=== PATIENT | female | born 1935 | race Caucasian/White ===

== ENCOUNTER 2019-09-21 13:05 | Outpatient (CLI) | payer MEDICARE, SELFPAY ==
[2019-09-21 13:41] LABS: Basophils % 0.6 %; Eosinophils # 0.1 10^3/uL (0.0-0.8); Eosinophils % 1.9 %; Hematocrit 42.8 % (37.0-47.0); Hemoglobin 13.5 g/dL (11.5-15.3); Lymphocytes # 1.2 10^3/uL (0.8-4.8); Lymphocytes % 24.7 %; Mean Corpuscular HGB Conc 31.5 g/dL (30.0-36.0); Mean Corpuscular Hemoglobin 29.6 pg (28.0-34.0); Mean Corpuscular Volume 93.9 fL (81-99); Mean Platelet Volume 10.9 fL (7.4-10.4); Monocytes # 0.3 10^3/uL (0.2-0.9); Monocytes % 6.5 %; Neutrophils # 3.2 10^3/uL (1.8-7.7); Neutrophils % 66.1 %; Nucleated Red Blood Cells % 0 %; Platelet Count 155 10^3/cmm (130-400); Red Blood Count 4.56 10^6/uL (4.1-5.3); Red Cell Distribution Width 12.5 % (12.1-15.1); White Blood Count 4.8 10^3/uL (4.0-10.0)
[2019-09-21 14:24] LABS: Carcinoembryonic Antigen 1.3 ng/mL (0.0-4.7)
[2019-09-21 14:36] LABS: Alanine Aminotransferase 10 U/L (0-33); Albumin Level 4.2 g/dL (3.5-5.2); Alkaline Phosphatase 76 IU/L (35-105); Anion Gap 16.5 (5-19); Aspartate Amino Transferase 20 U/L (0-32); Blood Urea Nitrogen 17 mg/dL (8-23); Calcium 9.5 mg/dL (8.5-10.5); Carbon Dioxide 29 mmol/L (22-29); Chloride 101 mmol/L (98-107); Globulin 2.8 g/dL (1.3-4.6); Glucose 135 mg/dL (65-115); Osmolality Calculated 294 mOsm/kg (285-295); Potassium 3.5 mmol/L (3.5-5.1); Sodium 143 mmol/L (136-145); Total Bilirubin 0.5 mg/dL (0.15-1.2)
--- NOTE | 2019-09-21 15:10 | ONC FU_ITS ---
Dr. Mendieta follow up note Patient: Naye Carter Unit #: [id number]: 1935 Dicatated By: Antoni Mendieta M.D.Date of Visit:Sep 21, 2019 Onc Med Follow-up/Prog Note History of Present Illness: Mrs. Naye Carter, 83-year-old woman with history of rectal bleed in January 2017 and underwent colonoscopy by Dr. Mike lamas which showed tumor/mass located in the rectosigmoid area at 18 cm biopsies was obtained which showed invasive moderately differentiated adenocarcinoma CT scan of the abdomen done in February 2017 showed short segment fusiform wall thickening of the sigmoid colon subcentimeter hepatic hypodensities too small to accurately characterize by CT Underwent low anterior resection with end to end stapled anastomosis and laparoscopic complete mobilization of splenic flexure on 02/12/2017 and final pathology report showed moderately differentiated adenocarcinoma invading through the muscularis propria into the pericolic soft tissue. Metastatic adenocarcinoma in one of the 17 lymph nodes surgical margins clear no lymphovascular invasion seen and histology was low-grade. IHC testing for mismatch repair protein showed no loss of expression of MMR proteins ; low probability of microsatellite instability-high Status post adjuvant chemotherapy with modified dose/schedule FOLFOX ???6 from 05/06/2017 till 07/14/2017. Follow-up CT scan of abdomen pelvis done on 07/14/2018 showed no evidence of disease progression and abdomen pelvis Stable appearing right renal and left hepatic cysts Unremarkable postoperative changes of sigmoid resection with end to end anastomosis. f/u Colonoscopy done on 06/27/2018 showed no evidence of disease but internal hemorrhoids. Came for follow-up denies any specific complaints, no fever chills, no nausea or vomiting, no diarrhea or constipation, no abdominal pain, no weight loss, appetite is good, no jaundice Medications: Aspirin 1 (81 mg) Tablet Oral daily, HydroCHLOROthiazide 1 (25 mg) Tablet Oral daily, LORazepam 0.5 - 1 mg (of 1 mg) Tablet Oral t.i.d. PRN, MiraLax 1 Pack Oral daily, Oxybutynin Chloride 1 (5 mg) Tablet Oral daily, Prochlorperazine Maleate 1 (10 mg) Tablet Oral q 4 hours PRN, RaNITidine HCl Tablet Oral PRN, Verapamil HCl ER 1 (180 mg) Capsule SR 24 HR Oral daily, Vision Formula Eye Health 1 Capsule Oral daily Allergies: TEGretol and TraMADol HCl. Review of Systems: Constitutional - Energy level is good. Appetite is good and weight is stable. No fever, chills, hot flashes, or night sweats, ENMT - Some sinus congestion/drainage. No mouth sores. No sore throat or difficulty swallowing, Hematologic/Lymphatic - No abnormal bruising or bleeding, Respiratory - No shortness of breath. Nonproductive cough. No pleuritic pain or hemoptysis, Cardiovascular - No angina pain. No palpitations, Gastrointestinal - No nausea or vomiting. Occasional heartburn or acid reflux. No diarrhea or constipation. No blood in the stool or black stools, Genitourinary (F) - No dysuria or hematuria. Positive for urinary frequency. No urgency or incontinence, Musculoskeletal - Chronic joint/knee pain, Neurologic - No headache or dizziness. Occasinal numbness in hands, Psychiatric - No anxiety or depression. No insomnia. Vital Signs: Performed on Sep 21, 2019 14:44 Height - 62.00 in Weight - 180.2 lbs (LOW) BSA - 1.83 sq.m BMI - 32.96 (HIGH) Temperature - 98.0 F (LOW) Pulse - 95 /min Respiration - 18 /min BP - 126/77 mm(hg) O2 Sat - 94 % (LOW) Pain - 0 Performance Status: 0 - Fully active, able to carry on all predisease activities without restrictions. (ECOG) Physical Examination: ENMT - No mouth sores, no thrush, no jaundice, Respiratory - Lungs are clear, Cardiovascular - Regular rate and rhythm of heart, Abdomen - Soft, bowel sounds present, nontender, Extremities - No visible edema or rash. Lab/Imaging: Most recent lab results are not available for this patient. 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 on 02/12/2017 final pathology showed tumor size 4 cm low-grade tumor invaded through muscularis propria into pericolic soft tissue margins were clear no lymphovascular invasion seen no perineural invasion seen p T3, pN1 a , MX stage IIIa IHC testing for mismatch repair protein showed no loss of expression of MMR proteins CT PET scan done on 04/17/2017 showed no findings to suggest distant metastatic disease.started on adjuvant chemotherapy with FOLFOX on 05/05/2017 till 07/14/2017 considering her age and comorbid conditions planning was to give her 6 cycles in total Which she finished on 07/14/2017 History of malignancy , (pathology and a primary , unknown at this time) in the chest diagnosed 20 years ago status post resection followed by radiation therapy Follow-up CT scan of abdomen pelvis done on 07/14/2018 showed no evidence of disease recurrence Stable appearance right renal and left hepatic cysts. Unremarkable postop changes of sigmoid resection with end to end anastomosis Follow-up Colonoscopy done on 06/27/2018 showed unremarkable exam except internal hemorrhoids Plan: Discussed with patient regarding her labs white blood count 4.8 hemoglobin 13.5 hematocrit 42.8 platelets 155,000 CMP within normal limits CEA 1.3 Clinically, patient doing well with no signs symptom suggestive of recurrence of disease or follow-up lab including tumor marker within normal range, will continue to monitor and she will return to clinic in 6 months with CBC CMP and CEA Signed By: Antoni Mendieta M.D. <<Signature on File>>
== END 2019-09-21 13:06 | disposition home or self-care (01) ==
LOC: ONCMED 13:08
PROVIDERS: PCP Physician Assistant Medical; Visit Provider Internal Medicine Hematology & Oncology
DX: Z08 Encounter for follow-up examination after completed treatment for malignant neoplasm (principal); Z85.038 Personal history of other malignant neoplasm of large intestine; Z92.21 Personal history of antineoplastic chemotherapy; Z85.9 Personal history of malignant neoplasm, unspecified; K76.89 Other specified diseases of liver; N28.1 Cyst of kidney, acquired; K64.8 Other hemorrhoids; Z90.49 Acquired absence of other specified parts of digestive tract
CPT/HCPCS: 80053; 82378; 85025; G0463

== ENCOUNTER 2020-03-21 12:07 | Outpatient (CLI) | payer MEDICARE, SELFPAY ==
[2020-03-21 12:41] LABS: Basophils % 0.6 %; Eosinophils # 0.1 10^3/uL (0.0-0.8); Eosinophils % 1.3 %; Hematocrit 44.7 % (37.0-47.0); Hemoglobin 14.3 g/dL (11.5-15.3); Lymphocytes # 1.1 10^3/uL (0.8-4.8); Lymphocytes % 20.7 %; Mean Corpuscular Hemoglobin 29.9 pg (28.0-34.0); Mean Corpuscular Volume 93.5 fL (81-99); Mean Platelet Volume 10.6 fL (7.4-10.4); Monocytes # 0.3 10^3/uL (0.2-0.9); Monocytes % 6.1 %; Neutrophils # 3.74 10^3/uL (1.8-7.7); Neutrophils % 71.1 %; Nucleated Red Blood Cells % 0 %; Platelet Count 160 10^3/cmm (130-400); Red Blood Count 4.78 10^6/uL (4.1-5.3); Red Cell Distribution Width 12.2 % (12.1-15.1); White Blood Count 5.3 10^3/uL (4.0-10.0)
[2020-03-21 13:15] LABS: Carcinoembryonic Antigen 1.5 ng/mL (0.0-4.7)
[2020-03-21 13:26] LABS: Alanine Aminotransferase 11 U/L (0-33); Albumin Level 4.2 g/dL (3.5-5.2); Alkaline Phosphatase 84 IU/L (35-105); Anion Gap 13.7 (5-19); Aspartate Amino Transferase 20 U/L (0-32); Blood Urea Nitrogen 14 mg/dL (8-23); Calcium 9.7 mg/dL (8.5-10.5); Carbon Dioxide 29 mmol/L (22-29); Chloride 100 mmol/L (98-107); Globulin 2.7 g/dL (1.3-4.6); Glucose 94 mg/dL (65-115); Osmolality Calculated 288 mOsm/kg (285-295); Potassium 3.7 mmol/L (3.5-5.1); Sodium 139 mmol/L (136-145); Total Bilirubin 0.4 mg/dL (0.15-1.2); Total Protein 6.9 g/dL (6.6-8.7)
--- NOTE | 2020-03-21 15:24 | ONC FU_ITS ---
Dr. Mendieta follow up note Patient: Naye Carter Unit #: [id number]: 1935 Dicatated By: Antoni Mendieta M.D.Date of Visit:Mar 21, 2020 Onc Med Follow-up/Prog Note History of Present Illness: Mrs. Naye Carter, 84-year-old woman with history of rectal bleed in January 2017 and underwent colonoscopy by Dr. Mike lamas which showed tumor/mass located in the rectosigmoid area at 18 cm biopsies was obtained which showed invasive moderately differentiated adenocarcinoma CT scan of the abdomen done in February 2017 showed short segment fusiform wall thickening of the sigmoid colon subcentimeter hepatic hypodensities too small to accurately characterize by CT Underwent low anterior resection with end to end stapled anastomosis and laparoscopic complete mobilization of splenic flexure on 02/12/2017 and final pathology report showed moderately differentiated adenocarcinoma invading through the muscularis propria into the pericolic soft tissue. Metastatic adenocarcinoma in one of the 17 lymph nodes surgical margins clear no lymphovascular invasion seen and histology was low-grade. IHC testing for mismatch repair protein showed no loss of expression of MMR proteins ; low probability of microsatellite instability-high Status post adjuvant chemotherapy with modified dose/schedule FOLFOX ???6 from 05/06/2017 till 07/14/2017. Follow-up CT scan of abdomen pelvis done on 07/14/2018 showed no evidence of disease progression and abdomen pelvis Stable appearing right renal and left hepatic cysts Unremarkable postoperative changes of sigmoid resection with end to end anastomosis. f/u Colonoscopy done on 06/27/2018 showed no evidence of disease but internal hemorrhoids. Came for follow-up, denies any specific complaints, no fever chills, no nausea vomiting, no diarrhea or constipation, no melena or hematochezia, no abdominal pain, as per patient about 2 months ago she did develop abdominal pain for which she went to [facility] in [place] where she underwent CT scan of abdomen and she was told she may have obstruction but later on she was told everything was all right. Medications: Aspirin 1 (81 mg) Tablet Oral daily, HydroCHLOROthiazide 1 (25 mg) Tablet Oral daily, LORazepam 0.5 - 1 mg (of 1 mg) Tablet Oral t.i.d. PRN, MiraLax 1 Pack Oral daily, Oxybutynin Chloride 1 (5 mg) Tablet Oral daily, Prochlorperazine Maleate 1 (10 mg) Tablet Oral q 4 hours PRN, RaNITidine HCl Tablet Oral PRN, Verapamil HCl ER 1 (180 mg) Capsule SR 24 HR Oral daily, Vision Formula Eye Health 1 Capsule Oral daily Allergies: TEGretol and TraMADol HCl. Review of Systems: Constitutional - Energy level is good. Appetite is good and weight is stable. No fever, chills, hot flashes, or night sweats, ENMT - Some sinus congestion/drainage. No mouth sores. No sore throat or difficulty swallowing, Hematologic/Lymphatic - No abnormal bruising or bleeding, Respiratory - No shortness of breath. Nonproductive cough. No pleuritic pain or hemoptysis, Cardiovascular - No angina pain. No palpitations, Gastrointestinal - No nausea or vomiting. Occasional heartburn or acid reflux. No diarrhea or constipation. No blood in the stool or black stools, Genitourinary (F) - No dysuria or hematuria. Positive for urinary frequency. No urgency or incontinence, Musculoskeletal - Chronic joint/knee pain, Integumentary - , Neurologic - No headache or dizziness. Occasinal numbness in hands, Psychiatric - No anxiety or depression. No insomnia. Vital Signs: Performed on Mar 21, 2020 13:54 Height - 62.00 in Weight - 174.0 lbs (LOW) BSA - 1.80 sq.m BMI - 31.83 (HIGH) Temperature - 98.1 F (LOW) Pulse - 99 /min Respiration - 18 /min BP - 136/79 mm(hg) O2 Sat - 96 % Pain - 0 Performance Status: 0 - Fully active, able to carry on all predisease activities without restrictions. (ECOG) Physical Examination: ENMT - No mouth sores, no thrush, no jaundice, Respiratory - Lungs are clear to auscultation, Cardiovascular - Regular rate and rhythm of heart, Abdomen - Soft, bowel sounds present, Extremities - No visible edema or rash. Lab/Imaging: Most recent lab results are not available for this patient. 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 on 02/12/2017 final pathology showed tumor size 4 cm low-grade tumor invaded through muscularis propria into pericolic soft tissue margins were clear no lymphovascular invasion seen no perineural invasion seen p T3, pN1 a , MX stage IIIa IHC testing for mismatch repair protein showed no loss of expression of MMR proteins CT PET scan done on 04/17/2017 showed no findings to suggest distant metastatic disease.started on adjuvant chemotherapy with FOLFOX on 05/05/2017 till 07/14/2017 considering her age and comorbid conditions planning was to give her 6 cycles in total Which she finished on 07/14/2017 History of malignancy , (pathology and a primary , unknown at this time) in the chest diagnosed 20 years ago status post resection followed by radiation therapy Follow-up CT scan of abdomen pelvis done on 07/14/2018 showed no evidence of disease recurrence Stable appearance right renal and left hepatic cysts. Unremarkable postop changes of sigmoid resection with end to end anastomosis Follow-up Colonoscopy done on 06/27/2018 showed unremarkable exam except internal hemorrhoids Plan: Discussed with patient regarding her labs white blood count 5.3 hemoglobin 14.3 hematocrit 44.7 platelets 160,000 CMP within normal limits CEA 1.5 Clinically, patient doing well with no new signs symptom suggestive of recurrence of disease, lab work-up is within normal range including tumor marker. Patient said about 2 months ago she went to [facility] in [facility] with abdominal pain and where CT scan of abdomen was done which showed possible intestinal obstruction, as per patient later on she was told everything was all right. And since then she has no more abdominal pain or symptom. We will obtain CT scan of abdomen report from [place] and review. Return to clinic in 6 months with CBC CMP Signed By: Antoni Mendieta M.D. <<Signature on File>>
== END 2020-03-21 12:08 | disposition home or self-care (01) ==
LOC: ONCMED 12:09
PROVIDERS: PCP Physician Assistant Medical; Visit Provider Internal Medicine Hematology & Oncology
DX: Z08 Encounter for follow-up examination after completed treatment for malignant neoplasm (principal); Z85.038 Personal history of other malignant neoplasm of large intestine; N28.1 Cyst of kidney, acquired; K76.0 Fatty (change of) liver, not elsewhere classified; K63.89 Other specified diseases of intestine; K64.8 Other hemorrhoids; Z79.899 Other long term (current) drug therapy
CPT/HCPCS: 36415; 80053; 82378; 85025; G0463

== ENCOUNTER 2020-08-20 13:05 | Outpatient (CLI) | payer MEDICARE, SELFPAY ==
--- NOTE | 2020-08-20 15:17 | MR_ITS ---
WS: [id number] MRI LEFT KNEE HISTORY: CHRONIC LEFT KNEE PAIN COMPARISON: None available. Anterior cruciate ligament: Complete tear of the distal ACL. Loss of the normal fibers distally. Posterior cruciate ligament: Mild buckling of the PCL. Medial collateral ligament: MCL is being displaced from the joint line by extruded meniscus and osteo phytes. Small amount of fluid adjacent to the MCL but no tear. Posterior lateral corner structures: Intact. Medial menisci: Abnormal signal and shape within the anterior and posterior horns. Menisci are extrud ed from the joint and there are complex tears bilaterally. Lateral meniscus: Intrasubstance degeneration. No definite tear is identified. Extensor mechanism: Distal quadriceps tendon and patellar tendons are intact. Fluid and soft tissue: Moderate-sized suprapatellar joint effusion. There is mild soft tissue edema s urrounding the knee. No Rosen's cyst. Osseous and articular structures: Patellofemoral compartment: Moderate narrowing patellofemoral joint space with patellar osteophytes. Moderate chondromalacia lateral patellar facet. No marrow edema. Medial compartment: Severe narrowing medial compartment. There is edema within the medial tibial plat eau. Moderate-sized osteophytes from the joint line with complete loss of cartilage. Spurring involvi ng the tibial spines. Lateral compartment: Mild narrowing of the lateral compartment. Marrow edema involving the lateral ti bial plateau. Osteophytes from the joint line. Significant chondromalacia but slightly better preserv ed cartilage in the lateral compartment as compared to the medial. MR/MR knee LT wo con* [id number] IMPRESSION: 1. Torn ACL. 2. Severe internal derangement medial compartment with loss of cartilage, david ow edema and extruded menisci. 3. Moderate internal derangement lateral compartment loss of cartilage and ost eophytes from the joint line. Marrow edema and intrasubstance degeneration in t he menisci. 4. Displacement of the MCL by extruded menisci and osteophytes. 5. Moderate-sized joint effusion. 6. Moderate chondromalacia lateral patellar facet.
== END 2020-08-20 13:06 | disposition home or self-care (01) ==
PROVIDERS: PCP Physician Assistant Medical; Visit Provider Physician Assistant Medical
DX: M25.562 Pain in left knee (principal); M23.92 Unspecified internal derangement of left knee; S83.502A Sprain of unspecified cruciate ligament of left knee, initial encounter; X58.XXXA Exposure to other specified factors, initial encounter; M25.462 Effusion, left knee; M22.42 Chondromalacia patellae, left knee
CPT/HCPCS: 73721

== ENCOUNTER → 2020-09-18 10:34 | Outpatient (BNVA) | payer MEDICARE, SELFPAY | PROVIDERS: PCP Physician Assistant Medical; Referring Provider Physician Assistant Medical; Visit Provider Specialist | DX: M25.562 Pain in left knee (principal); M17.12 Unilateral primary osteoarthritis, left knee; M25.462 Effusion, left knee | CPT/HCPCS: 73560; 73565 ==

== ENCOUNTER 2020-09-20 08:07 | Outpatient (CLI) | payer MEDICARE, SELFPAY ==
[2020-09-20 08:28] LABS: Basophils % 0.6 %; Eosinophils # 0.1 10^3/uL (0.0-0.8); Eosinophils % 1.8 %; Hematocrit 44.7 % (37.0-47.0); Hemoglobin 14.2 g/dL (11.5-15.3); Lymphocytes # 1.1 10^3/uL (0.8-4.8); Lymphocytes % 23.1 %; Mean Corpuscular HGB Conc 31.8 g/dL (30.0-36.0); Mean Corpuscular Hemoglobin 29.8 pg (28.0-34.0); Mean Corpuscular Volume 93.9 fL (81-99); Mean Platelet Volume 10.2 fL (7.4-10.4); Monocytes # 0.4 10^3/uL (0.2-0.9); Monocytes % 8.3 %; Neutrophils # 3.26 10^3/uL (1.8-7.7); Nucleated Red Blood Cells % 0 %; Platelet Count 157 10^3/cmm (130-400); Red Blood Count 4.76 10^6/uL (4.1-5.3); Red Cell Distribution Width 12.3 % (12.1-15.1); White Blood Count 4.9 10^3/uL (4.0-10.0)
[2020-09-20 08:58] LABS: Alanine Aminotransferase 9 U/L (0-33); Albumin Level 4.2 g/dL (3.5-5.2); Alkaline Phosphatase 78 IU/L (35-105); Anion Gap 10.6 (5-19); Aspartate Amino Transferase 16 U/L (0-32); Blood Urea Nitrogen 22 mg/dL (8-23); Calcium 9.2 mg/dL (8.5-10.5); Carbon Dioxide 34 mmol/L (22-29); Chloride 102 mmol/L (98-107); Globulin 2.4 g/dL (1.3-4.6); Glucose 96 mg/dL (65-115); Osmolality Calculated 299 mOsm/kg (285-295); Potassium 3.6 mmol/L (3.5-5.1); Sodium 143 mmol/L (136-145); Total Bilirubin 0.4 mg/dL (0.15-1.2); Total Protein 6.6 g/dL (6.6-8.7)
--- NOTE | 2020-09-20 11:58 | ONC FU_ITS ---
Dr. Mendieta follow up note Patient: Naye Carter Unit #: [id number]: 1935 Dicatated By: Antoni Mendieta M.D.Date of Visit:Sep 20, 2020 Onc Med Follow-up/Prog Note History of Present Illness: Mrs. Naye Carter, 84-year-old woman with history of rectal bleed in January 2017 and underwent colonoscopy by Dr. Mike lamas which showed tumor/mass located in the rectosigmoid area at 18 cm biopsies was obtained which showed invasive moderately differentiated adenocarcinoma CT scan of the abdomen done in February 2017 showed short segment fusiform wall thickening of the sigmoid colon subcentimeter hepatic hypodensities too small to accurately characterize by CT Underwent low anterior resection with end to end stapled anastomosis and laparoscopic complete mobilization of splenic flexure on 02/12/2017 and final pathology report showed moderately differentiated adenocarcinoma invading through the muscularis propria into the pericolic soft tissue. Metastatic adenocarcinoma in one of the 17 lymph nodes surgical margins clear no lymphovascular invasion seen and histology was low-grade. IHC testing for mismatch repair protein showed no loss of expression of MMR proteins ; low probability of microsatellite instability-high Status post adjuvant chemotherapy with modified dose/schedule FOLFOX ???6 from 05/06/2017 till 07/14/2017. Follow-up CT scan of abdomen pelvis done on 07/14/2018 showed no evidence of disease progression and abdomen pelvis Stable appearing right renal and left hepatic cysts Unremarkable postoperative changes of sigmoid resection with end to end anastomosis. f/u Colonoscopy done on 06/27/2018 showed no evidence of disease but internal hemorrhoids. Came for follow-up, denies any specific complaint except left knee pain and discomfort as per patient left knee replacement is under consideration other than that no fever chills, no nausea or vomiting no diarrhea constipation, no jaundice, no abdominal pain, no melena hematochezia Medications: Aspirin 1 (81 mg) Tablet Oral daily, HydroCHLOROthiazide 1 (25 mg) Tablet Oral daily, LORazepam 0.5 - 1 mg (of 1 mg) Tablet Oral t.i.d. PRN, MiraLax 1 Pack Oral daily, Oxybutynin Chloride 1 (5 mg) Tablet Oral daily, Prochlorperazine Maleate 1 (10 mg) Tablet Oral q 4 hours PRN, RaNITidine HCl Tablet Oral PRN, Verapamil HCl ER 1 (180 mg) Capsule SR 24 HR Oral daily, Vision Formula Eye Health 1 Capsule Oral daily Allergies: TEGretol and TraMADol HCl. Review of Systems: Review of Systems is not available for this patient. Vital Signs: Performed on Sep 20, 2020 10:09 Height - 62.00 in Weight - 174.6 lbs (HIGH) BSA - 1.80 sq.m BMI - 31.93 (HIGH) Temperature - 97.6 F (LOW) Pulse - 91 /min Respiration - 18 /min BP - 118/75 mm(hg) O2 Sat - 92 % (LOW) Pain - 0 Fatigue - 0 Performance Status: 0 - Fully active, able to carry on all predisease activities without restrictions. (ECOG) Physical Examination: ENMT - No mouth sores, no thrush, no jaundice, Respiratory - Lungs are clear to auscultation, Cardiovascular - Regular rate and rhythm of heart, Abdomen - Soft, bowel sounds present, Extremities - No visible edema. Lab/Imaging: Most recent lab results are not available for this patient. 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 on 02/12/2017 final pathology showed tumor size 4 cm low-grade tumor invaded through muscularis propria into pericolic soft tissue margins were clear no lymphovascular invasion seen no perineural invasion seen p T3, pN1 a , MX stage IIIa IHC testing for mismatch repair protein showed no loss of expression of MMR proteins CT PET scan done on 04/17/2017 showed no findings to suggest distant metastatic disease.started on adjuvant chemotherapy with FOLFOX on 05/05/2017 till 07/14/2017 considering her age and comorbid conditions planning was to give her 6 cycles in total Which she finished on 07/14/2017 History of malignancy , (pathology and a primary , unknown at this time) in the chest diagnosed 20 years ago status post resection followed by radiation therapy Follow-up CT scan of abdomen pelvis done on 07/14/2018 showed no evidence of disease recurrence Stable appearance right renal and left hepatic cysts. Unremarkable postop changes of sigmoid resection with end to end anastomosis Follow-up Colonoscopy done on 06/27/2018 showed unremarkable exam except internal hemorrhoids Plan: Discussed with patient regarding her labs white blood count 4.9 hemoglobin 14.2 hematocrit 44.7 platelets 157 CMP within normal limits Clinically, patient doing well with no new signs symptom suggestive of recurrence of disease, patient had a CT scan of abdomen pelvis done in December 2019 at that time she presented to [facility] in [place] with the abdominal pain and diagnosed with ileus appearing proximal small bowel with a much retained stools and there were few indeterminate tiny hepatic hypodensities too small to fully characterize, Patient has no new symptoms suggestive of recurrence of disease but at this point, will consider follow-up CT scan of abdomen pelvis prior to next visit in 4 months with CBC CMP and CEA Signed By: Antoni Mendieta M.D. <<Signature on File>>
== END 2020-09-20 08:08 | disposition home or self-care (01) ==
PROVIDERS: PCP Physician Assistant Medical; Visit Provider Internal Medicine Hematology & Oncology
DX: Z08 Encounter for follow-up examination after completed treatment for malignant neoplasm (principal); Z85.038 Personal history of other malignant neoplasm of large intestine; N28.1 Cyst of kidney, acquired; K76.0 Fatty (change of) liver, not elsewhere classified; K64.9 Unspecified hemorrhoids; Z79.899 Other long term (current) drug therapy; Z92.21 Personal history of antineoplastic chemotherapy
CPT/HCPCS: 36415; 80053; 85025; 99214

== ENCOUNTER 2020-09-26 06:00 | Outpatient (RCR) | payer MEDICARE, SELFPAY | END 2020-10-02 23:59 | disposition home or self-care (01) | LOC: WPT 06:00 | PROVIDERS: PCP Physician Assistant Medical; Referring Provider Specialist; Visit Provider Specialist | DX: M17.12 Unilateral primary osteoarthritis, left knee (principal) | CPT/HCPCS: 97161 ==

== ENCOUNTER 2021-01-27 12:41 | Outpatient (CLI) | payer MEDICARE, SELFPAY ==
--- NOTE | 2021-01-27 | CT_ITS ---
WS: [id number] CT ABDOMEN PELVIS TECHNIQUE: Contrast-enhanced CT of the abdomen and pelvis with coronal and sagittal reformatted image s. CLINICAL INFORMATION: COLON CANCER COMPARISON: July 14, 2018 DLP: 1007.[address] [facility] use at least one of these dose optimization techniques: automated e xposure control; mA and/or kV adjustment per patient size (includes targeted exams where dose is matc hed to clinical indication); or iterative reconstruction. FINDINGS: Prior postoperative changes sigmoid resection with end to end anastomosis. No evidence of disease pro gression. No adenopathy in the abdomen or pelvis. Mild diffuse fatty infiltration of the liver. A few tiny incidental hepatic cysts. Splenic granulomas . Normal GE junction. Coronary calcification. Lung bases are well aerated. Fatty atrophy of the pancr eas. Adrenal glands are normal. Normal renal parenchymal enhancement. Incidental renal cysts. Normal caliber abdominal aorta. Aortic calcification. No evidence of high-grade small or large bowel obstruction. Small fat-containing abdominal hernia. Di sc space narrowing lower lumbar spine. CT/CT abdomen pelvis w con* [id number] IMPRESSION: 1. Prior postoperative changes sigmoid resection with end-to-end anastomosis. 2. No evidence of disease progression in the abdomen or pelvis. 3. No abdominal or pelvic lymphadenopathy. 4. Incidental right renal and tiny hepatic cysts. 5. Small Fat-containing supraumbilical hernia.
[2021-01-27] MEDS: iohexol 300 mg/mL 100 mL Btl IV (14:26)
[2021-01-27 14:44] LABS: Blood Urea Nitrogen 28 mg/dL (8-23)
== END 2021-01-27 12:42 | disposition home or self-care (01) ==
PROVIDERS: PCP Physician Assistant Medical; Visit Provider Internal Medicine Hematology & Oncology
DX: C18.7 Malignant neoplasm of sigmoid colon (principal); K42.9 Umbilical hernia without obstruction or gangrene; N28.1 Cyst of kidney, acquired; K76.89 Other specified diseases of liver
CPT/HCPCS: 74177; 82565; 84520; Q9967

== ENCOUNTER 2021-02-24 12:48 | Outpatient (CLI) | payer MEDICARE, SELFPAY ==
[2021-02-24 13:31] LABS: Basophils % 0.8 %; Eosinophils # 0.2 10^3/uL (0.0-0.8); Eosinophils % 4.1 %; Hematocrit 43.6 % (37.0-47.0); Hemoglobin 14.2 g/dL (11.5-15.3); Lymphocytes # 1.1 10^3/uL (0.8-4.8); Lymphocytes % 22.1 %; Mean Corpuscular HGB Conc 32.6 g/dL (30.0-36.0); Mean Corpuscular Hemoglobin 29.7 pg (28.0-34.0); Mean Corpuscular Volume 91.2 fl (81-99); Mean Platelet Volume 10.3 fL (7.4-10.4); Monocytes # 0.3 10^3/uL (0.2-0.9); Monocytes % 6.5 %; Neutrophils # 3.24 10^3/uL (1.8-7.7); Neutrophils % 66.3 %; Nucleated Red Blood Cells % 0 %; Platelet Count 160 10^3/cmm (130-400); Red Blood Count 4.78 10^6/uL (4.1-5.3); Red Cell Distribution Width 12.5 % (12.1-15.1); White Blood Count 4.9 10^3/uL (4.0-10.0)
[2021-02-24 14:35] LABS: Carcinoembryonic Antigen 1.7 ng/mL (0.0-4.7)
[2021-02-24 14:48] LABS: Alanine Aminotransferase 9 U/L (0-33); Alkaline Phosphatase 74 IU/L (35-105); Blood Urea Nitrogen 20 mg/dL (8-23); Calcium 8.7 mg/dL (8.5-10.5); Carbon Dioxide 31 mmol/L (22-29); Chloride 103 mmol/L (98-107); Globulin 2.4 g/dL (1.3-4.6); Glucose 111 mg/dL (65-115); Osmolality Calculated 301 mOsm/kg (285-295); Sodium 144 mmol/L (136-145); Total Bilirubin 0.3 mg/dL (0.15-1.2); Total Protein 6.4 g/dL (6.6-8.7)
[2021-02-24 14:49] LABS: Anion Gap 13.9 (5-19); Aspartate Amino Transferase 13 U/L (0-32); Potassium 3.9 mmol/L (3.5-5.1)
--- NOTE | 2021-02-26 09:27 | ONC FU_ITS ---
Dr. Mendieta follow up note Patient: Naye Carter Unit #: [id number]: 1935 Dicatated By: Antoni Mendieta M.D.Date of Visit:Feb 24, 2021 Onc Med Follow-up/Prog Note History of Present Illness: Mrs. Naye Carter, 85-year-old woman with history of rectal bleed in January 2017 and underwent colonoscopy by Dr. Mike lamas which showed tumor/mass located in the rectosigmoid area at 18 cm biopsies was obtained which showed invasive moderately differentiated adenocarcinoma CT scan of the abdomen done in February 2017 showed short segment fusiform wall thickening of the sigmoid colon subcentimeter hepatic hypodensities too small to accurately characterize by CT Underwent low anterior resection with end to end stapled anastomosis and laparoscopic complete mobilization of splenic flexure on 02/12/2017 and final pathology report showed moderately differentiated adenocarcinoma invading through the muscularis propria into the pericolic soft tissue. Metastatic adenocarcinoma in one of the 17 lymph nodes surgical margins clear no lymphovascular invasion seen and histology was low-grade. IHC testing for mismatch repair protein showed no loss of expression of MMR proteins ; low probability of microsatellite instability-high Status post adjuvant chemotherapy with modified dose/schedule FOLFOX ???6 from 05/06/2017 till 07/14/2017. Follow-up CT scan of abdomen pelvis done on 07/14/2018 showed no evidence of disease progression and abdomen pelvis Stable appearing right renal and left hepatic cysts Unremarkable postoperative changes of sigmoid resection with end to end anastomosis. f/u Colonoscopy done on 06/27/2018 showed no evidence of disease but internal hemorrhoids. Follow-up CT scan of abdomen pelvis done on January 23, 2021 shows no evidence of disease progression in the abdomen or pelvis. Prior postop changes sigmoid resection with end-to-end anastomosis. No abdominal or pelvic lymphadenopathy. Small fat-containing supra umbilical hernia., CEA 1.7 Came for follow-up, denies any specific complaints, no fever chills, no nausea or vomiting, no diarrhea or constipation, no melena or hematochezia, no jaundice, no abdominal pain, appetite is good, patient is considering knee replacement for chronic knee pain Medications: Aspirin 1 (81 mg) Tablet Oral daily, HydroCHLOROthiazide 1 (25 mg) Tablet Oral daily, LORazepam 0.5 - 1 mg (of 1 mg) Tablet Oral t.i.d. PRN, MiraLax 1 Pack Oral daily, Oxybutynin Chloride 1 (5 mg) Tablet Oral daily, Prochlorperazine Maleate 1 (10 mg) Tablet Oral q 4 hours PRN, RaNITidine HCl Tablet Oral PRN, Verapamil HCl ER 1 (180 mg) Capsule SR 24 HR Oral daily, Vision Formula Eye Health 1 Capsule Oral daily Allergies: TEGretol and TraMADol HCl. Review of Systems: Review of Systems is not available for this patient. Vital Signs: Performed on Feb 24, 2021 16:11 Height - 62.00 in Weight - 179 lbs (HIGH) BSA - 1.82 sq.m BMI - 32.74 (HIGH) Temperature - 97.4 F (LOW) Pulse - 104 /min (HIGH) Respiration - 18 /min BP - 137/83 mm(hg) O2 Sat - 94 % (LOW) Pain - 10 Fatigue - 0 Performance Status: 1 - No physically strenuous activity, but ambulatory and able to carry out light or sedentary work (e.g. office work, light house work). (ECOG) Physical Examination: ENMT - No mouth sores, no thrush, no jaundice, Respiratory - Lungs are clear to auscultation, Cardiovascular - Regular rate and rhythm of heart, Abdomen - Soft, bowel sounds present, Extremities - No visible edema. Lab/Imaging: Most recent lab results are not available for this patient. 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 on 02/12/2017 final pathology showed tumor size 4 cm low-grade tumor invaded through muscularis propria into pericolic soft tissue margins were clear no lymphovascular invasion seen no perineural invasion seen p T3, pN1 a , MX stage IIIa IHC testing for mismatch repair protein showed no loss of expression of MMR proteins CT PET scan done on 04/17/2017 showed no findings to suggest distant metastatic disease.started on adjuvant chemotherapy with FOLFOX on 05/05/2017 till 07/14/2017 considering her age and comorbid conditions planning was to give her 6 cycles in total Which she finished on 07/14/2017 History of malignancy , (pathology and a primary , unknown at this time) in the chest diagnosed 20 years ago status post resection followed by radiation therapy Follow-up CT scan of abdomen pelvis done on 07/14/2018 showed no evidence of disease recurrence Stable appearance right renal and left hepatic cysts. Unremarkable postop changes of sigmoid resection with end to end anastomosis Follow-up Colonoscopy done on 06/27/2018 showed unremarkable exam except internal hemorrhoids Plan: Discussed with patient regarding her labs white blood count 4.9 hemoglobin 14.2 hematocrit 43.6 platelets 160,000 CMP within normal limits CEA 1.7 and follow-up CT scan of abdomen pelvis which was done because of there was a concern regarding questionable hepatic lesion seen on CTA chest, follow-up CT scan of abdomen pelvis shows no obvious hepatic lesion except diffuse fatty infiltration and a few tiny incidental hepatic cysts. Clinically, patient doing well with no new signs symptom suggestive of disease progression her follow-up CT scan of chest abdomen shows no evidence of recurrence of disease her tumor marker CEA is also within normal range as well as liver function test., At this point, we will continue to monitor and she will return to clinic in 6 months with CBC CMP and CEA Signed By: Antoni Mendieta M.D. <<Signature on File>>
== END 2021-02-24 12:49 | disposition home or self-care (01) ==
LOC: ONCMED 12:54
PROVIDERS: PCP Physician Assistant Medical; Visit Provider Internal Medicine Hematology & Oncology
DX: Z08 Encounter for follow-up examination after completed treatment for malignant neoplasm (principal); Z85.038 Personal history of other malignant neoplasm of large intestine; N28.1 Cyst of kidney, acquired; K76.89 Other specified diseases of liver; Z79.899 Other long term (current) drug therapy; Z92.21 Personal history of antineoplastic chemotherapy; Z92.3 Personal history of irradiation
CPT/HCPCS: 36415; 80053; 82378; 85025; 99214

== ENCOUNTER 2021-06-02 12:17 | Outpatient (CLI) | payer MEDICARE, SELFPAY ==
--- NOTE | 2021-06-02 12:30 | USCV_ITS ---
Naye Carter Age: 85 Gender: F : 1935 Exam Date: 06/02/2021 13:10 Ordering Phys: Cherry Velasquez MD ([email or web address]) Technologist: Chanell Haque Exam Location: [facility] [place] Indication: [id number] BP: 110 / 68 HR: 84 Rhythm: Sinus Technical Quality: Adequate MEASUREMENTS (Male / Female) Normal Values 2D ECHO LV Diastolic Diameter PLAX 4.5 cm 4.2 - 5.9 / 3.9 - 5.3 cm LV Systolic Diameter PLAX 3.8 cm IVS Diastolic Thickness 1.4 cm 0.6 - 1.0 / 0.6 - 0.9 cm IVS Systolic Thickness 1.9 cm LVPW Diastolic Thickness 1.4 cm 0.6 - 1.0 / 0.6 - 0.9 cm LVPW Systolic Thickness 1.4 cm LVOT Diameter 2.0 cm LV Ejection Fraction 2D Teich 32.7 % LV Ejection Fraction MOD 2C 44.4 % LV Ejection Fraction 2C AL 47.9 % LA Diameter 3.7 cm LA Width 3.3 cm LA Height 5.4 cm RA Width 3.4 cm RA Height 4.7 cm Aorta at Sinotubular Diameter 2.1 cm M-MODE Aortic Annulus Diameter 2.7 cm LA Ao Ratio MM 1.4 MV E Point Septal Separation 1.1 cm DOPPLER AV Peak Velocity 227.0 cm/s LVOT Peak Velocity 87.0 cm/s AV Area Cont Eq vti 1.2 cm squared AV Area Cont Eq pk 1.2 cm squared MV Peak Velocity 149.0 cm/s MV Area PHT 5.0 cm squared Mitral E to A Ratio 0.5 MV E' Velocity 37.0 cm/s Mitral E to MV E' Ratio 13.0 Mitral E to LV E' Lateral Ratio 9.9 Mitral E to LV E' Septal Ratio 19.0 TR Peak Velocity 238.5 cm/s TR Peak Gradient 22.8 mmHg TR Mean Velocity 246.4 cm/s TR Mean Gradient 25.1 mmHg TR Velocity Time Integral 82.1 cm TV Peak E Velocity 49.0 cm/s Right Atrial Pressure 3.0 mmHg Pulmonary Artery Systolic Pressu 25.8 mmHg PV Peak Velocity 76.0 cm/s RV Acceleration Time 0.1 s RV Ejection Time 0.2 s RV AcT/ET 0.4 FINDINGS Left Ventricle Normal left ventricular size and systolic function, EF 55 %. Mild left ventricular hypertrophy. Grade I/IV diastolic dysfunction (abnormal relaxation filling pattern), normal to mildly elevated filling pressures. Mild hypokinesia of the basal and mid inferior wall segment Right Ventricle The right ventricle is normal in size and function. Right Atrium The right atrium is normal in size. Left Atrium Moderately increased left atrial size. Mitral Valve Thickened mitral valve. Mild mitral annular calcification. Mild mitral valve regurgitation. Aortic Valve Thickened aortic valve. Aortic valve sclerosis. Mild aortic valve regurgitation. Tricuspid Valve Moderate tricuspid valve regurgitation. Pulmonic Valve No gross abnormalities noted Pericardium No pericardial effusion. Aorta Normal ascending aorta dimension. CONCLUSIONS Normal left ventricular size and systolic function, EF 55 %. Mild left ventricular hypertrophy. Grade I/IV diastolic dysfunction (abnormal relaxation filling pattern), normal to mildly elevated filling pressures. Mild hypokinesia of the basal and mid inferior wall segment. Thickened mitral valve. Mild mitral annular calcification. Mild mitral valve regurgitation. Moderately increased left atrial size. Thickened aortic valve. Aortic valve sclerosis. Mild aortic valve regurgitation. Moderate tricuspid valve regurgitation. Estimated pulmonary artery peak systolic pressure of 26 mm of Hg. There is no pericardial effusion. There are no intracardiac masses. Compared to the study from 05/31/2014, there may not be a significant change Dr Cherry Velasquez MD [facility] (Electronically Signed) Final Date: 02 June 2021 15:34 S
== END 2021-06-02 12:18 | disposition home or self-care (01) ==
LOC: RAD 12:20
PROVIDERS: PCP Registered Nurse; Visit Provider Internal Medicine Cardiovascular Disease
DX: R06.00 Dyspnea, unspecified (principal); I08.3 Combined rheumatic disorders of mitral, aortic and tricuspid valves
CPT/HCPCS: 93306

== ENCOUNTER 2021-09-16 11:33 | Oncology outpatient (recurring) (ONCR) | payer MEDICARE, SELFPAY ==
[2021-09-16 12:11] LABS: Basophils % 0.4 %; Eosinophils # 0.1 10^3/uL (0.0-0.8); Eosinophils % 1.8 %; Hematocrit 42.4 % (37.0-47.0); Hemoglobin 14.1 g/dL (11.5-15.3); Lymphocytes # 1.1 10^3/uL (0.8-4.8); Lymphocytes % 21.1 %; Mean Corpuscular HGB Conc 33.3 g/dL (30.0-36.0); Mean Corpuscular Hemoglobin 29.7 pg (28.0-34.0); Mean Corpuscular Volume 89.3 fl (81-99); Mean Platelet Volume 10.5 fL (7.4-10.4); Monocytes # 0.4 10^3/uL (0.2-0.9); Monocytes % 7.6 %; Neutrophils # 3.53 10^3/uL (1.8-7.7); Neutrophils % 68.9 %; Nucleated Red Blood Cells % 0 %; Platelet Count 158 10^3/cmm (130-400); Red Blood Count 4.75 10^6/uL (4.1-5.3); Red Cell Distribution Width 12.5 % (12.1-15.1); White Blood Count 5.1 10^3/uL (4.0-10.0)
[2021-09-16 12:43] LABS: Carcinoembryonic Antigen 1.5 ng/mL (0.0-4.7)
[2021-09-16 12:55] LABS: Alanine Aminotransferase 10 U/L (0-33); Albumin Level 4.3 g/dL (3.5-5.2); Alkaline Phosphatase 77 IU/L (35-105); Anion Gap 16.9 (5-19); Aspartate Amino Transferase 16 U/L (0-32); Blood Urea Nitrogen 23 mg/dL (8-23); Calcium 9.1 mg/dL (8.5-10.5); Carbon Dioxide 25 mmol/L (22-29); Chloride 104 mmol/L (98-107); Globulin 2.6 g/dL (1.3-4.6); Glucose 122 mg/dL (65-115); Osmolality Calculated 299 mOsm/kg (285-295); Potassium 3.9 mmol/L (3.5-5.1); Sodium 142 mmol/L (136-145); Total Bilirubin 0.3 mg/dL (0.15-1.2); Total Protein 6.9 g/dL (6.6-8.7)
== END 2021-10-02 23:59 | disposition home or self-care (01) ==
PROVIDERS: Internal Medicine Hematology & Oncology; PCP Registered Nurse; Referring Provider Surgery; Visit Provider Nurse Practitioner Family
DX: C18.7 Malignant neoplasm of sigmoid colon (principal); C79.9 Secondary malignant neoplasm of unspecified site
CPT/HCPCS: 36415; 80053; 82378; 85025; 99214

== ENCOUNTER → 2022-01-28 10:44 | Outpatient (BNVA) | payer MEDICARE, SELFPAY | PROVIDERS: PCP Registered Nurse; Visit Provider Internal Medicine Cardiovascular Disease | DX: I10 Essential (primary) hypertension (principal); I47.1 Supraventricular tachycardia; Z86.711 Personal history of pulmonary embolism; M79.89 Other specified soft tissue disorders | CPT/HCPCS: 99214 ==

== ENCOUNTER 2022-03-18 08:52 | Outpatient (CLI) | payer MEDICARE, SELFPAY ==
[2022-03-18] MEDS: iohexol 350 mg/mL 100 mL Btl PO (09:55)
[2022-03-18 10:06] LABS: Basophils % 0.4 %; Eosinophils # 0.1 10^3/uL (0.0-0.8); Eosinophils % 1.3 %; Hematocrit 45.9 % (37.0-47.0); Hemoglobin 14.6 g/dL (11.5-15.3); Lymphocytes # 1.2 10^3/uL (0.8-4.8); Lymphocytes % 24.8 %; Mean Corpuscular HGB Conc 31.8 g/dL (30.0-36.0); Mean Corpuscular Hemoglobin 29.5 pg (28.0-34.0); Mean Corpuscular Volume 92.7 fl (81-99); Mean Platelet Volume 10.4 fL (7.4-10.4); Monocytes # 0.3 10^3/uL (0.2-0.9); Monocytes % 7.1 %; Neutrophils % 66.2 %; Nucleated Red Blood Cells % 0 %; Platelet Count 151 10^3/cmm (130-400); Red Blood Count 4.95 10^6/uL (4.1-5.3); Red Cell Distribution Width 12.9 % (12.1-15.1); White Blood Count 4.7 10^3/uL (4.0-10.0)
[2022-03-18 10:38] LABS: Carcinoembryonic Antigen 1.5 ng/mL (0.0-4.7)
[2022-03-18 10:50] LABS: Alanine Aminotransferase 9 U/L (0-33); Albumin Level 4.4 g/dL (3.5-5.2); Alkaline Phosphatase 80 U/L (35-105); Anion Gap 13.7 (5-19); Aspartate Amino Transferase 17 U/L (0-32); Blood Urea Nitrogen 20 mg/dL (8-23); Calcium 9.6 mg/dL (8.5-10.5); Carbon Dioxide 29 mmol/L (22-29); Chloride 101 mmol/L (98-107); Globulin 2.7 g/dL (1.3-4.6); Glucose 93 mg/dL (65-115); Osmolality Calculated 292 mOsm/kg (285-295); Potassium 3.7 mmol/L (3.5-5.1); Sodium 140 mmol/L (136-145); Total Bilirubin 0.5 mg/dL (0.15-1.2); Total Protein 7.1 g/dL (6.6-8.7)
[2022-03-18] MEDS: iohexol 350 mg/mL 500 mL Btl (per mL) IV (11:10)
--- NOTE | 2022-03-18 12:00 | CT_ITS ---
WS: [id number] CT ABDOMEN PELVIS TECHNIQUE: Contrast-enhanced CT of the abdomen and pelvis with coronal and sagittal reformatted image s. CLINICAL INFORMATION: restaging COMPARISON: CT January 27, 2021 DLP: 1401.[address] scans at [facility] use at least one of these dose optimization techniques: automated e xposure control; mA and/or kV adjustment per patient size (includes targeted exams where dose is matc hed to clinical indication); or iterative reconstruction. FINDINGS: Postoperative changes sigmoid resection with anastomosis. No evidence of disease progression or recur rence at the anastomosis. Sigmoid colon is decompressed proximal to the anastomosis. No evidence of m ass or recurrence the anastomosis site. No adenopathy in the abdomen or pelvis. Mild diffuse fatty infiltration liver. Hepatic and renal cysts. Normal portal vein and splenic vein. Normal spleen. Cholecystectomy clips. Fat-containing supraumbilical hernia. No herniated bowel. Small esophageal hiatal hernia. Normal portal vein and its splenic vein. Adrenal glands are normal. Normal renal parenchymal enhancement. Small renal cysts. Mild aortic calcification. Celiac and SMA are carreon nt. No adenopathy in the abdomen or pelvis. Slight anterolisthesis L3 on L4. Disc space narrowing wor se L4-L5 and L5-S1. Prior cholecystectomy. Prior hysterectomy. CT/CT abdomen pelvis w con* [id number] IMPRESSION: 1. Prior postoperative changes sigmoid resection with anastomosis. No evidence of recurrent disease or disease progression at the anastomosis. 2. No adenopathy in the abdomen or pelvis. 3. Incidental renal and hepatic cysts. 4. No other significant changes compared to previous.
== END 2022-03-18 08:53 | disposition home or self-care (01) ==
PROVIDERS: PCP Registered Nurse; Visit Provider Nurse Practitioner Family
DX: C79.9 Secondary malignant neoplasm of unspecified site (principal); K76.89 Other specified diseases of liver; Q61.02 Congenital multiple renal cysts
CPT/HCPCS: 36415; 74177; 80053; 82378; 85025; Q9967

== ENCOUNTER 2022-03-23 12:09 | Oncology outpatient (recurring) (ONCR) | payer MEDICARE, SELFPAY ==
[2022-03-23 13:36] LABS: Basophils % 0.6 %; Eosinophils # 0.1 10^3/uL (0.0-0.8); Eosinophils % 1.4 %; Hematocrit 43.9 % (37.0-47.0); Hemoglobin 14.1 g/dL (11.5-15.3); Lymphocytes # 1.2 10^3/uL (0.8-4.8); Lymphocytes % 22.9 %; Mean Corpuscular HGB Conc 32.1 g/dL (30.0-36.0); Mean Corpuscular Hemoglobin 29.7 pg (28.0-34.0); Mean Corpuscular Volume 92.6 fl (81-99); Mean Platelet Volume 10.9 fL (7.4-10.4); Monocytes # 0.4 10^3/uL (0.2-0.9); Monocytes % 7.5 %; Neutrophils # 3.44 10^3/uL (1.8-7.7); Neutrophils % 67.4 %; Nucleated Red Blood Cells % 0 %; Platelet Count 152 10^3/cmm (130-400); Red Blood Count 4.74 10^6/uL (4.1-5.3); Red Cell Distribution Width 12.9 % (12.1-15.1); White Blood Count 5.1 10^3/uL (4.0-10.0)
[2022-03-23 14:38] LABS: Carcinoembryonic Antigen 1.6 ng/mL (0.0-4.7)
[2022-03-23 14:49] LABS: Alanine Aminotransferase 9 U/L (0-33); Albumin Level 4.2 g/dL (3.5-5.2); Alkaline Phosphatase 77 U/L (35-105); Anion Gap 13.6 (5-19); Aspartate Amino Transferase 17 U/L (0-32); Blood Urea Nitrogen 24 mg/dL (8-23); Calcium 9.6 mg/dL (8.5-10.5); Carbon Dioxide 30 mmol/L (22-29); Chloride 101 mmol/L (98-107); Globulin 2.7 g/dL (1.3-4.6); Glucose 93 mg/dL (65-115); Osmolality Calculated 296 mOsm/kg (285-295); Potassium 3.6 mmol/L (3.5-5.1); Sodium 141 mmol/L (136-145); Total Bilirubin 0.4 mg/dL (0.15-1.2); Total Protein 6.9 g/dL (6.6-8.7)
== END 2022-04-04 23:59 | disposition home or self-care (01) ==
PROVIDERS: PCP Registered Nurse; Referring Provider Surgery; Visit Provider Nurse Practitioner Family
DX: Z08 Encounter for follow-up examination after completed treatment for malignant neoplasm (principal); Z85.038 Personal history of other malignant neoplasm of large intestine; Z92.21 Personal history of antineoplastic chemotherapy; Z92.3 Personal history of irradiation
CPT/HCPCS: 36415; 80053; 82378; 85025; 99214

== ENCOUNTER → 2022-08-05 11:02 | Outpatient (BNVA) | payer MEDICARE, SELFPAY | PROVIDERS: PCP Registered Nurse; Visit Provider Internal Medicine Cardiovascular Disease | DX: I48.91 Unspecified atrial fibrillation (principal); I35.0 Nonrheumatic aortic (valve) stenosis; I27.20 Pulmonary hypertension, unspecified; Z86.711 Personal history of pulmonary embolism; M79.89 Other specified soft tissue disorders; I10 Essential (primary) hypertension; Z79.01 Long term (current) use of anticoagulants | CPT/HCPCS: 99214 ==

== ENCOUNTER 2022-12-04 19:50 | Observation (INO) | payer MEDICARE, SELFPAY ==
[2022-12-04 20:08] VITALS: BMI 31.5
--- NOTE | 2022-12-04 20:44 | P.HP_ITS ---
Providers/Chief Complaint Admitting Physician: Cale Peterson MD Primary Care Provider: HONG Cancino Chief Complaint: Afib History of Present Illness Naye Carter is a 87 year old female known atrial fibrillation hypertension and CHF with acute onset shortness of breath today. At outlying facility she was found to have A-fib with rapid ventricular response. She was given Lasix 40 mg, Lopressor 5 mg and started on amiodarone prior to transfer to [facility]. Currently, she denies chest pain shortness of breath. She is currently on 2 L nasal cannula. He reports that she mostly takes her Lasix daily but sometimes later in the day specially if she has to go out for an appointment. She denies any recent changes in her medications. Review of Systems Const: Denies: fever(s) or chills Eyes: Denies: change in vision ENMT: Denies: throat pain or nasal congestion Card: Reports: chest pain; Denies: palpitations Resp: Reports: dyspnea; Denies: productive cough GI: Denies: abdominal pain, nausea, vomiting or change in stool character : Denies: dysuria Musc: Denies: back pain or extremity pain Skin/Breast: Denies: rash or lesions Neuro: Denies: headache(s) or dizziness Psych: Denies: anxiety or depression Lul/Lymph: Denies: easy bruising or easy bleeding Medications/Allergies Home Medications Medication Instructions Recorded Confirmed Last Taken Type meclizine 25 mg tablet 25 mg PO DAILY 01/30/20 03/23/22 Unknown History verapamil 180 mg tablet,extended 180 mg PO DAILY 01/28/21 03/23/22 Unknown History release dimenhydrinate 50 mg tablet 50 mg PO Q8H PRN dizziness or 01/28/22 03/23/22 Unknown History vertigo famotidine 20 mg tablet 20 mg PO DAILY 01/28/22 03/23/22 Unknown History apixaban 5 mg tablet (Eliquis) 5 mg PO BID 08/05/22 Unknown History furosemide 20 mg tablet 20 mg PO DAILY 08/05/22 Unknown History metoprolol succinate 50 mg 50 mg PO DAILY 08/05/22 Unknown History tablet,extended release 24 hr potassium chloride 10 mEq 10 meq PO DAILY 08/05/22 Unknown History tablet,extended release Allergies Allergy/AdvReac Type Severity Reaction Status Date / Time tramadol Allergy Unknown unknown Verified 08/05/22 11:53 PFSH Acute PFSH: Medical History (Updated 12/04/22 @ 20:58 by Jraod Kern DO) Benign essential HTN Cancer of thymus Cystocele H/O cardiac arrhythmia History of pulmonary embolism Hypertension Leg swelling 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, 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 Paroxysmal atrial tachycardia Pulmonary embolism Rectocele Trigeminal neuralgia Vaginal enterocele Surgical History H/O: hysterectomy Hx of cholecystectomy Family History Sister Cancer Brother Cancer Diabetes Lung disease Father Dementia Diabetes Mother Diabetes Denies family history of CAD (coronary artery disease) Clotting disorder Chronic kidney disease (CKD) Suicide Anesthesia complication Bleeding disorder Stroke Social History Smoking and tobacco status: never smoked Alcohol intake: never Substance/Drug Use: never Physical Exam Narrative: Elderly appearing female distress at time of exam Neurologic: Alert and oriented x3 nonfocal to exam HEENT head is normocephalic atraumatic pupils are equal round and reactive to light and accommodation extraocular muscles intact there is no scleral icterus mucous membranes are moist and pink without lesions or exudates neck is supple no JVD carotid bruits or lymphadenopathy Chest: Rises symmetric with inspiration Cardiac: Irregularly irregular tachycardic rhythm. Systolic murmur can be heard occasionally. Respiratory: A squeaky wheeze is heard on inspiration in the right lower lobe. Clear to auscultation Abdomen: Soft nontender nondistended positive bowel sounds no hepatosplenomegaly Extremities. Trace pitting edema on the left lower extremity. The overall left leg appears greater in size than the right. Back: Moderate kyphosis apparent no scoliosis no CVA tenderness Psych: Mood and affect are appropriate Lymph: No axillary inguinal or supraclavicular lymphadenopathy Data Other Labs: Labs from [facility] reviewed pertinent positives are platelets 122 ABG showed a normal pH of 7.43 however PCO2 was 57 on room air. . BN P 4360. COVID-19 antigen negative influenza AMB negative Troponins negative A&P Assessment and plan (1) Atrial fibrillation with rapid ventricular response: Upon arrival, patient's heart rate has been between 100 to the max 120. She is asymptomatic now. She is currently on amiodarone. I would suggest increasing her beta-juan or calcium channel juan. Thus I will start Cardizem drip and stop amiodarone. Given that the patient carries a history of pulmonary fibrosis amiodarone is contraindicated. We will also start on short acting beta-juna to obtain the appropriate dose to convert to. (2) History of pulmonary embolism: Continue apixaban 5 mg twice daily (3) Benign essential HTN: As above for beta-juan and calcium channel juan. (4) Leg swelling: Continue Lasix 40 mg IV while in the hospital (5) Aortic valve stenosis: Qualifiers: Cardiac valve disease etiology: nonrheumatic Qualified Code(s): I35.0 - Nonrheumatic aortic (valve) stenosis (6) Pulmonary hypertension: And history of pulmonary fibrosis. Attestations Medical Necessity Statement*: patient's care is expected to cross 2 midnights 2 midnight stay for the control of her heart rate and balancing of medication regimen. Coding Level of Care Code Acute Code for [facility] Diagnoses Atrial fibrillation with rapid ventricular response I48.91 History of pulmonary embolism Z86.711 Benign essential HTN I10 Leg swelling M79.89 Aortic valve stenosis I35.0 Cardiac valve disease etiology: nonrheumatic Pulmonary hypertension I27.20
[2022-12-04 21:01] VITALS: BP 160/91; PULSE 108; PULSE 113; RESP 22; TEMP 36.7; O2SAT 94
[2022-12-04] MEDS: dilTIAZem 5 mg/mL SDV 5 mL 10 MG IVP (21:29)
[2022-12-04 22:00] VITALS: PULSE 109
[2022-12-04] MEDS: metoprolol tartrate 50 mg Tablet 100 MG PO (22:52)
[2022-12-05] VITALS (8 sets, daily range): BP systolic 101–132; BP diastolic 48–79; PULSE 65–102; RESP 14–22; TEMP 36.3–37.3; O2SAT 88–94
--- NOTE | 2022-12-05 03:28 | PC.NURSE ---
Started mary anne gtt @ 2217, BP was 92/58 @ [address] notified, gtt was titrated to 2.5 mg/hr @ 0305.
--- NOTE | 2022-12-05 04:54 | PC.NURSE ---
patient converted to normal sinus @ 0417. Dr notified, cardizem gtt stopped at 0436.
[2022-12-05] MEDS: metoprolol succinate ER (24 HR) 100 mg Tablet PO (06:31)
[2022-12-05] MEDS: FUROsemide 10 mg/mL SDV 4mL 40 MG IVP (06:31)
[2022-12-05] MEDS: docusate sodium 100 mg Capsule PO (10:19)
[2022-12-05] MEDS: apixaban 5 mg Tablet PO (10:19)
[2022-12-05] MEDS: meclizine 25 mg tablet PO (10:19)
[2022-12-05] MEDS: famotidine 20 mg Tablet PO (10:19)
[2022-12-05] MEDS: verapamil ER 180 mg Tablet PO (10:20)
[2022-12-05] MEDS: potassium chloride ER 10 mEq Tablet PO (10:20)
--- NOTE | 2022-12-05 13:17 | PM.DCS ---
Discharge Providers Date of Admission: 12/04/22 19:50 Date of Discharge: December 05, 2022 Attending Provider at Admission: Cale Peterson MD Attending Provider at Discharge: Nitesh Dennison Primary Care Provider: HONG Cancino Diagnoses at Discharge Discharge Diagnosis (1) Atrial fibrillation with rapid ventricular response: Status: Acute (2) History of pulmonary embolism: Status: Acute (3) Benign essential HTN: Status: Acute (4) Leg swelling: Status: Acute (5) Aortic valve stenosis: Status: Acute Qualifiers: Cardiac valve disease etiology: nonrheumatic Qualified Code(s): I35.0 - Nonrheumatic aortic (valve) stenosis (6) Pulmonary hypertension: Status: Acute Reason for Visit Reason for Visit: Afib Brief History: Naye Carter is a 87 year old female known atrial fibrillation hypertension and CHF with acute onset shortness of breath today.? At outlying facility she was found to have A-fib with rapid ventricular response.? She was given Lasix 40 mg, Lopressor 5 mg and started on amiodarone prior to transfer to [facility]. Currently, she denies chest pain shortness of breath.? She is currently on 2 L nasal cannula.? He reports that she mostly takes her Lasix daily but sometimes later in the day specially if she has to go out for an appointment.? She denies any recent changes in her medications. Hospital Course Hospital Course Amiodarone was discontinued due to concern for underlying pulmonary fibrosis, she was resumed on verapamil and her metoprolol dose was increased to 100 mg. Discussed with her and family regarding BB and CC juan possible synergistic effect lowering blood pressure, although here currently she has been tolerating it well, last blood pressure 132/79. She has converted to sinus rhythm. As such discussed switching to metoprolol tartrate twice daily 25 mg and continue verapamil unchanged. Continue Eliquis. She has been having some cold-like symptoms, congestion, postnasal drip, some mild nonproductive cough. X-ray reviewed, noted no pneumonia. However, cautioned her and family to seek medical attention in case of worsening symptoms, cough, shortness of breath, fever or other symptoms suggestive of development of superimposed bacterial pneumonia. Rapid COVID-19 and influenza antigens were noted negative. She does drink several cups of coffee a day, caution her for now to hold off until she recovers from acute illness to avoid contributing to triggers of atrial fibrillation. She is instructed to continue monitoring heart rates and blood pressure at home. They know to seek medical attention in case of worsening or new concerning symptoms. Physical Exam Narrative: Accompanied by family including as well as daughter and son. Const: COMMON NORMALS: patient oriented x3 and alert GENERAL APPEARANCE: cooperative and frail appearing ORIENTATION/CONSCIOUSNESS: Yes awake HENMT: COMMON NORMALS: oropharynx normal Neck/C-Spine: COMMON NORMALS: no JVD Resp: COMMON NORMALS: normal respiratory effort and clear to auscultation bilaterally AUSCULTATION: clear to auscultation bilaterally Cardio: COMMON NORMALS: no JVD, regular rhythm, S1 normal heart sound present, S2 normal heart sound present and No murmurs present (Cardio) RHYTHM: regular rhythm HEART SOUNDS: S1 normal heart sound present and S2 normal heart sound present GI: COMMON NORMALS: Normal to inspection, nondistended, normoactive bowel sounds present, Soft to palpation and non-tender PALPATION: Yes Soft to palpation Extremity: COMMON NORMALS: no joint enlargement and no pedal edema Neuro: COMMON NORMALS: patient oriented x3 and moves all extremities SENSORIUM/ORIENTATION: Yes alert Skin: COMMON NORMALS: no rashes or lesions noted GENERAL SKIN EXAM: no rashes or lesions noted Discharge Data Vitals Last Vital Signs Temp 98.4 F 12/05/22 11:34 Pulse 67 12/05/22 11:34 Resp 18 12/05/22 11:34 BP 132/79 12/05/22 11:34 Pulse Ox 88 L 12/05/22 13:14 O2 Del Method Nasal Cannula 12/05/22 11:34 O2 Flow Rate 2 12/05/22 13:14 Discharge Plan Discharge Patient Disposition: Home Condition: Stable Prescriptions: New metoprolol tartrate 75 mg tablet 75 mg PO BID Qty: 180 0RF Continued meclizine 25 mg tablet 25 mg PO DAILY verapamil 180 mg tablet extended release 180 mg PO DAILY famotidine 20 mg tablet 20 mg PO DAILY dimenhydrinate [Dramamine] 50 mg tablet 50 mg PO Q8H PRN (Reason: dizziness or vertigo) Eliquis 5 mg tablet 5 mg PO BID furosemide 20 mg tablet 20 mg PO DAILY potassium chloride 10 mEq tablet extended release 10 meq PO DAILY Discontinued metoprolol succinate 50 mg tablet extended release 24 hr 50 mg PO DAILY Discharge Orders: Discharge Order (Routine); Ordered 12/05/22 Ordered By: Nitesh Dennison Referrals: Magaly Chambers FNP [Primary Care Provider] - 4-7 days (We have notified your physician's clinic of the need for a follow-up appointment to be scheduled. If you have not heard from them within the next 2 business days, please call them directly. You may also reach out to our strategic manager at [phone] and she can assist you.) Simran Paez FNP [Nurse Practitioner] - 1 week (We have notified your physician's clinic of the need for a follow-up appointment to be scheduled. If you have not heard from them within the next 2 business days, please call them directly. You may also reach out to our strategic manager at [phone] and she can assist you.) Discharge Diet: Cardiac Discharge Activity: Oxygen as instructed Patient Instructions: Metoprolol (By mouth), A-fib (Atrial Fibrillation) (GEN) Activity Restrictions/Additional Instructions: Please continue to monitor heart rates at home, and measure blood pressure 3 times daily, write down values. Monitor for any hypotension as discussed, hold your medication and call your doctors office in case your blood pressures less than 100/60 or if your heart rate is staying persistently high above 110 or low less than 60 seek medical attention. Discussed with your primary provider and duct maker adjustment of the dose of metoprolol. Follow-up regarding aortic stenosis. Follow-up regarding concern for pulmonary fibrosis. Discharge Attestations Time Spent in Discharge Care*: greater than 30 min Quality Metrics Clinical Quality Measures [ No reported AMI, CVA or VTE this stay] Coding Level of Care Code 45851 Total time (in minutes) for Discharge: 40 Diagnoses Atrial fibrillation with rapid ventricular response I48.91 History of pulmonary embolism Z86.711 Benign essential HTN I10 Leg swelling M79.89 Aortic valve stenosis I35.0 Cardiac valve disease etiology: nonrheumatic Pulmonary hypertension I27.20
--- NOTE | 2022-12-05 14:34 | PC.NURSE ---
Discharge Note Patient discharged to [home] via [wheelchair to POV] accompanied by [daughter]. Discharge instructions reviewed with patient and/or accounting representative. Mobile pharmacy medications and/or prescriptions provided. Belongings/home medications returned.
== END 2022-12-05 14:25 | disposition home or self-care (01) | DRG 310 ==
PROVIDERS: Admitting Provider Family Medicine; PCP Registered Nurse; Visit Provider Internal Medicine
DX: I48.91 Unspecified atrial fibrillation (principal); I11.0 Hypertensive heart disease with heart failure; I50.9 Heart failure, unspecified; Z79.01 Long term (current) use of anticoagulants; Z86.711 Personal history of pulmonary embolism; I35.0 Nonrheumatic aortic (valve) stenosis; I27.20 Pulmonary hypertension, unspecified; Z85.238 Personal history of other malignant neoplasm of thymus; Z85.038 Personal history of other malignant neoplasm of large intestine
CPT/HCPCS: 94760; G0378; G0379; J1940; J3490; J8597

== ENCOUNTER 2022-12-21 20:27 | Emergency (ER) | payer MEDICARE, SELFPAY ==
[2022-12-21 20:34] VITALS: BP 168/101; PULSE 94; RESP 17; TEMP 36.9; O2SAT 94; BMI 31.2
--- NOTE | 2022-12-21 20:44 | ECG_ITS ---
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 Measurements Intervals [place] Rate: 86 P: 63 WA: 149 QRS: -31 QRSD: 117 T: 53 QT: 379 QTc: 455 Interpretive Statements SINUS RHYTHM WITH OCCASIONAL SUPRAVENTRICULAR PREMATURE COMPLEXES LEFT AXIS DEVIATION [QRS AXIS < -30] PATTERN CONSISTENT WITH PULMONARY DISEASE MODERATE VOLTAGE CRITERIA FOR LVH, CONSIDER NORMAL VARIANT [MEETS CRITERIA IN ONE OF: R(aVL), S(V1), R(V5), R(V5/V6)+S(V1)] POSSIBLE SEPTAL MYOCARDIAL INFARCTION , OF INDETERMINATE AGE [30 ms Q WAVE IN V1/V2] Compared to ECG 04/30/2017 09:04:25 Left-axis deviation now present Myocardial infarct finding still present Electronically Signed On 12-22-2022 9:20:56 CDT by Jered Ma M.D. [id number]
[2022-12-21 21:15] LABS: Basophils % 0.2 %; Eosinophils # 0.3 10^3/uL (0.0-0.8); Eosinophils % 4.9 %; Hematocrit 43.6 % (36-47); Lymphocytes # 0.8 10^3/uL (0.8-4.8); Lymphocytes % 15.1 %; Mean Corpuscular HGB Conc 31.9 g/dL (30-55); Mean Corpuscular Hemoglobin 29.4 pg (27-33); Mean Corpuscular Volume 92.4 fl (85-98); Mean Platelet Volume 10.6 fL (7.4-10.4); Monocytes # 0.6 10^3/uL (0.2-0.9); Monocytes % 10.6 %; Neutrophils # 3.78 10^3/uL (1.8-7.7); Nucleated Red Blood Cells % 0 %; Platelet Count 144 10^3/cmm (157-399); Red Blood Count 4.72 10^6/uL (3.85-5.65); White Blood Count 5.48 10^3/uL (3.29-11.43)
[2022-12-21 21:43] LABS: Alanine Aminotransferase 9 U/L (0-33); Albumin Level 4.2 g/dL (3.5-5.2); Alkaline Phosphatase 89 U/L (35-105); Aspartate Amino Transferase 16 U/L (0-32); Blood Urea Nitrogen 18 mg/dL (8-23); Calcium 9.4 mg/dL (8.5-10.5); Carbon Dioxide 29 mmol/L (22-29); Chloride 102 mmol/L (98-107); Creatinine Clr Calc Pharmacy 38.4226; Glucose 101 mg/dL (65-115); Magnesium 1.9 mg/dL (1.7-2.3); NT Pro B Type Natriuretic Pept 2827 pg/mL (0-450); Osmolality Calculated 294 mOsm/kg (285-295); Sodium 141 mmol/L (136-145); Total Bilirubin 0.5 mg/dL (0.15-1.2); Total Protein 7.2 g/dL (6.6-8.7)
--- NOTE | 2022-12-21 22:08 | XRR_ITS ---
PROCEDURE INFORMATION: Exam: XR Chest Exam date and time: 12/21/2022 10:22 PM Age: 87 years old Clinical indication: Other: Weakness; Additional info: Cough TECHNIQUE: Imaging protocol: Radiologic exam of the chest. Views: 1 view. COMPARISON: CR XR chest 1V [id number] 05/03/2017 9:23 AM FINDINGS: Lungs: Unremarkable. No consolidation. Pleural spaces: Unremarkable. No pleural effusion. No pneumothorax. Heart/Mediastinum: Unremarkable. No cardiomegaly. Bones/joints: Unremarkable. XR/XR chest 1V portable [id number] IMPRESSION: No acute findings.
--- NOTE | 2022-12-21 23:55 | ED_ITS ---
HPI - Weakness General: Chief complaint: Weakness Stated complaint: chills Time Seen by Provider: 12/21/22 22:07 History of Present Illness: Patient presents to the ER with complaints of generalized weakness over the last several days patient is taking all of her medicine. Patient was discharged from the hospital not too long ago and patient's was just discharged from the hospital several days ago. Patient has no definitive complaints other just weakness. 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 Paroxysmal atrial tachycardia Pulmonary embolism Rectocele Trigeminal neuralgia Vaginal enterocele Surgical History H/O: hysterectomy Hx of cholecystectomy Family History Sister Cancer Brother Cancer Diabetes Lung disease Father Dementia Diabetes Mother Diabetes Denies family history of CAD (coronary artery disease) Clotting disorder Chronic kidney disease (CKD) Suicide Anesthesia complication Bleeding disorder Stroke Social History Smoking and tobacco status: never smoked Alcohol intake: never Substance/Drug Use: never Physical Exam Const: COMMON NORMALS: no acute distress, average body habitus, patient oriented x3, no limitations, healthy appearing, alert and well nourished Neck/C-Spine: COMMON NORMALS: no JVD Chest: COMMONS NORMALS: normal inspection of the chest and normal palpation of entire chest wall Resp: COMMON NORMALS: normal respiratory effort, No retractions, No use of accessory muscles and clear to auscultation bilaterally AUSCULTATION: clear to auscultation bilaterally Cardio: COMMON NORMALS: no JVD, regular rate, regular rhythm, S1 normal heart sound present, S2 normal heart sound present, No gallops present (Cardio), No clicks present (Cardio), No murmurs present (Cardio) and No rub (Cardio) RATE: regular rate RHYTHM: regular rhythm HEART SOUNDS: S1 normal heart sound present and S2 normal heart sound present GI: COMMON NORMALS: Normal to inspection, nondistended, normoactive bowel sounds present, Soft to palpation, non-tender, No hepatosplenomegaly present and no masses PALPATION: Yes Soft to palpation and Yes No hepatosplenomegaly present : COMMON NORMALS: Yes no CVA tenderness BLADDER/KIDNEY EXAM: Yes no CVA tenderness Back/Pelvis: COMMON NORMALS: no CVA tenderness Neuro: COMMON NORMALS: patient oriented x3 SENSORIUM/ORIENTATION: Yes alert Course Vital Signs: Vital signs: Vital Signs Temperature 98.5 F 12/21/22 20:34 Pulse Rate 94 12/21/22 20:34 Respiratory Rate 17 12/21/22 20:34 Blood Pressure 168/101 12/21/22 20:34 Pulse Oximetry 94 12/21/22 20:34 MDM - Weakness Medical Decision Making Patient presents to the ER with complaints of generalized weakness. Patient was worked up with EKG chest x-ray and lab work all of which were essentially benign. These findings was discussed in detail to the and the son who understood. Patient be discharged home. Differential Diagnosis Unlikely acute myocardial infarction, anemia, hypoglycemia, hypothyroidism, rhabdomyolysis, sepsis or dehydration Medical Records I reviewed the patient's medical records. Lab Data I reviewed the patient's lab results. 12/21/22 20:57 12/21/22 20:57 Radiology Impressions Chest X-Ray 12/21/22 22:08 IMPRESSION: No acute findings. Laboratory Results WBC 5.48 10^3/uL (3.29-11.43) 12/21/22 20:57 RBC 4.72 10^6/uL (3.85-5.65) 12/21/22 20:57 Hgb 13.90 g/dL (11.27-16.99) 12/21/22 20:57 Hct 43.6 % (36-47) 12/21/22 20:57 MCV 92.4 fl (85-98) 12/21/22 20:57 MCH 29.4 pg (27-33) 12/21/22 20:57 MCHC 31.9 g/dL (30-55) 12/21/22 20:57 RDW 13.0 % (12.1-15.1) 12/21/22 20:57 Plt Count 144 10^3/cmm (157-399) L 12/21/22 20:57 MPV 10.6 fL (7.4-10.4) H 12/21/22 20:57 Neut % (Auto) 69.0 % 12/21/22 20:57 Lymph % (Auto) 15.1 % 12/21/22 20:57 [place] % (Auto) 10.6 % 12/21/22 20:57 Eos % (Auto) 4.9 % 12/21/22 20:57 Baso % (Auto) 0.2 % 12/21/22 20:57 Neut # (Auto) 3.78 10^3/uL (1.8-7.7) 12/21/22 20:57 Lymph # (Auto) 0.8 10^3/uL (0.8-4.8) 12/21/22 20:57 [place] # (Auto) 0.6 10^3/uL (0.2-0.9) 12/21/22 20:57 Eos # (Auto) 0.3 10^3/uL (0.0-0.8) 12/21/22 20:57 Baso # (Auto) 0.0 10^3/uL (0.0-0.1) 12/21/22 20:57 Nucleated RBC % (auto) 0 % 12/21/22 20:57 Nucleated RBCs # 0.0 /100WBC 12/21/22 20:57 Sodium 141 mmol/L (136-145) 12/21/22 20:57 Potassium 4.0 mmol/L (3.5-5.1) 12/21/22 20:57 Chloride 102 mmol/L (98-107) 12/21/22 20:57 Carbon Dioxide 29 mmol/L (22-29) 12/21/22 20:57 Anion Gap 14.0 (5-19) 12/21/22 20:57 BUN 18 mg/dL (8-23) 12/21/22 20:57 Creatinine 0.9 mg/dL (0.5-0.9) 12/21/22 20:57 GFR Calculation Not Reportable 12/21/22 20:57 Glucose 101 mg/dL (65-115) 12/21/22 20:57 Calculated Osmolality 294 mOsm/kg (285-295) 12/21/22 20:57 Calcium 9.4 mg/dL (8.5-10.5) 12/21/22 20:57 Magnesium 1.9 mg/dL (1.7-2.3) 12/21/22 20:57 Total Bilirubin 0.5 mg/dL (0.15-1.2) 12/21/22 20:57 AST 16 U/L (0-32) 12/21/22 20:57 ALT 9 U/L (0-33) 12/21/22 20:57 Alkaline Phosphatase 89 U/L (35-105) 12/21/22 20:57 NT-Pro-B Natriuret Pep 2827 pg/mL (0-450) H 12/21/22 20:57 Total Protein 7.2 g/dL (6.6-8.7) 12/21/22 20:57 Albumin 4.2 g/dL (3.5-5.2) 12/21/22 20:57 Globulin 3.0 g/dL (1.3-4.6) 12/21/22 20:57 All radiology interpretation(s) finalized by discharge EKG Data EKG 1: I personally reviewed and interpreted this EKG as follows: EKG interpretation date: 12/21/22 EKG interpretation time: 22:01 Prior EKG tracings: not available for review Interpretation: EKG showed ventricular rate of 86 bpm, MN interval 149, QRS 117, QTc of 423, sinus rhythm with occasional PVC, left axis deviation Discharge Plan Discharge Patient Disposition: Home Clinical Impression: Generalized muscle weakness Condition: Stable Prescriptions: No Action meclizine 25 mg tablet 25 mg PO DAILY verapamil 180 mg tablet extended release 180 mg PO DAILY famotidine 20 mg tablet 20 mg PO DAILY dimenhydrinate [Dramamine] 50 mg tablet 50 mg PO Q8H PRN (Reason: dizziness or vertigo) Eliquis 5 mg tablet 5 mg PO BID furosemide 20 mg tablet 20 mg PO DAILY potassium chloride 10 mEq tablet extended release 10 meq PO DAILY metoprolol tartrate 75 mg tablet 75 mg PO BID Qty: 180 0RF Discharge Orders: Discharge ED (Routine); Ordered 12/21/22 Ordered By: Hakeem Valerio Referrals: Mariza Chambers [Primary Care Provider] - 1 week Patient Instructions: Weakness (Generalized) Activity Restrictions/Additional Instructions: Please continue take all your medicine as prescribed. Please follow-up with your family practice physician within the next 7 to 10 days or sooner as needed for further evaluation and treatment. Coding Level of Care Code ED Merchandise Presentation Associate for Angela Hernandez
[2022-12-22 00:32] VITALS: BP 168/101; PULSE 94; RESP 17; TEMP 36.9; O2SAT 94
== END 2022-12-22 00:34 | disposition home or self-care (01) ==
PROVIDERS: Emergency Provider Emergency Medicine; PCP Registered Nurse
DX: M62.81 Muscle weakness (generalized) (principal); Z79.01 Long term (current) use of anticoagulants; I10 Essential (primary) hypertension; Z85.238 Personal history of other malignant neoplasm of thymus; Z86.711 Personal history of pulmonary embolism
CPT/HCPCS: 36415; 71045; 80053; 83735; 83880; 85025; 93005; 99285

== ENCOUNTER → 2022-12-28 09:32 | Outpatient (BNVA) | payer MEDICARE, SELFPAY | PROVIDERS: PCP Registered Nurse; Visit Provider Nurse Practitioner Family | DX: I48.91 Unspecified atrial fibrillation (principal); Z79.01 Long term (current) use of anticoagulants | CPT/HCPCS: 99213 ==

== ENCOUNTER → 2023-02-11 13:41 | Outpatient (BNVA) | payer MEDICARE, SELFPAY | PROVIDERS: PCP Registered Nurse; Visit Provider Internal Medicine Cardiovascular Disease | DX: I48.91 Unspecified atrial fibrillation (principal); I27.20 Pulmonary hypertension, unspecified; Z86.711 Personal history of pulmonary embolism; M79.89 Other specified soft tissue disorders; I10 Essential (primary) hypertension; I35.8 Other nonrheumatic aortic valve disorders; Z79.01 Long term (current) use of anticoagulants | CPT/HCPCS: 99214 ==

== ENCOUNTER 2023-04-29 08:16 | Oncology outpatient (recurring) (ONCR) | payer MEDICARE, SELFPAY ==
[2023-04-29 08:37] VITALS: BP 158/87; PULSE 57; RESP 18; TEMP 36.6; O2SAT 94
[2023-04-29 08:46] LABS: Basophils % 0.5 %; Eosinophils # 0.1 10^3/uL (0.0-0.8); Eosinophils % 3.2 %; Hematocrit 44.2 % (36-47); Lymphocytes # 1.1 10^3/uL (0.8-4.8); Mean Corpuscular HGB Conc 31.9 g/dL (30-55); Mean Corpuscular Hemoglobin 29.5 pg (27-33); Mean Corpuscular Volume 92.5 fl (85-98); Mean Platelet Volume 10.6 fL (7.4-10.4); Monocytes # 0.4 10^3/uL (0.2-0.9); Monocytes % 8.7 %; Neutrophils # 2.69 10^3/uL (1.8-7.7); Neutrophils % 61.1 %; Nucleated Red Blood Cells % 0 %; Platelet Count 143 10^3/cmm (157-399); Red Blood Count 4.78 10^6/uL (3.85-5.65); Red Cell Distribution Width 12.7 % (12.1-15.1); White Blood Count 4.39 10^3/uL (3.29-11.43)
[2023-04-29 09:28] LABS: Alanine Aminotransferase 10 U/L (0-33); Albumin Level 4.3 g/dL (3.5-5.2); Alkaline Phosphatase 92 U/L (35-105); Anion Gap 15.1 (5-19); Aspartate Amino Transferase 18 U/L (0-32); Blood Urea Nitrogen 19 mg/dL (8-23); Calcium 9.9 mg/dL (8.5-10.5); Carbon Dioxide 29 mmol/L (22-29); Chloride 103 mmol/L (98-107); Globulin 3.1 g/dL (1.3-4.6); Glucose 95 mg/dL (65-115); Osmolality Calculated 298 mOsm/kg (285-295); Potassium 4.1 mmol/L (3.5-5.1); Sodium 143 mmol/L (136-145); Total Bilirubin 0.4 mg/dL (0.15-1.2); Total Protein 7.4 g/dL (6.6-8.7)
== END 2023-05-05 23:59 | disposition home or self-care (01) ==
PROVIDERS: Internal Medicine Medical Oncology; PCP Registered Nurse; Referring Provider Surgery; Visit Provider Nurse Practitioner Family
DX: Z85.038 Personal history of other malignant neoplasm of large intestine; Z08 Encounter for follow-up examination after completed treatment for malignant neoplasm; Z79.899 Other long term (current) drug therapy
CPT/HCPCS: 36415; 80053; 82378; 85025; 99213

== ENCOUNTER → 2023-08-23 13:03 | Outpatient (BNVA) | payer MEDICARE, SELFPAY | PROVIDERS: PCP Registered Nurse; Visit Provider Internal Medicine Cardiovascular Disease | DX: I26.99 Other pulmonary embolism without acute cor pulmonale (principal); I48.91 Unspecified atrial fibrillation; I10 Essential (primary) hypertension; I35.0 Nonrheumatic aortic (valve) stenosis; Z86.711 Personal history of pulmonary embolism; Z79.01 Long term (current) use of anticoagulants | CPT/HCPCS: 99214 ==

== ENCOUNTER 2023-10-29 08:49 | Oncology outpatient (recurring) (ONCR) | payer MEDICARE, SELFPAY ==
[2023-10-29 09:53] LABS: Basophils % 0.4 %; Eosinophils # 0.1 10^3/uL (0.0-0.8); Eosinophils % 2.6 %; Hematocrit 43.7 % (36-47); Lymphocytes % 20.8 %; Mean Corpuscular HGB Conc 31.1 g/dL (30-55); Mean Corpuscular Hemoglobin 29.1 pg (27-33); Mean Corpuscular Volume 93.6 fl (85-98); Mean Platelet Volume 11.2 fL (7.4-10.4); Monocytes # 0.4 10^3/uL (0.2-0.9); Monocytes % 8.6 %; Neutrophils # 3.14 10^3/uL (1.8-7.7); Neutrophils % 67.4 %; Nucleated Red Blood Cells % 0 %; Platelet Count 141 10^3/cmm (157-399); Red Blood Count 4.67 10^6/uL (3.85-5.65); Red Cell Distribution Width 12.9 % (12.1-15.1); White Blood Count 4.66 10^3/uL (3.29-11.43)
[2023-10-29 10:22] LABS: Carcinoembryonic Antigen 1.1 ng/mL (0.0-4.7)
[2023-10-29 10:33] LABS: Alanine Aminotransferase 11 U/L (0-33); Albumin Level 4.1 g/dL (3.5-5.2); Alkaline Phosphatase 87 U/L (35-105); Anion Gap 14.3 (5-19); Aspartate Amino Transferase 17 U/L (0-32); Blood Urea Nitrogen 20 mg/dL (8-23); Calcium 9.2 mg/dL (8.5-10.5); Carbon Dioxide 28 mmol/L (22-29); Chloride 102 mmol/L (98-107); Creatinine Clr Calc Pharmacy 42.7877; Globulin 2.7 g/dL (1.3-4.6); Glucose 94 mg/dL (65-115); Osmolality Calculated 292 mOsm/kg (285-295); Potassium 4.3 mmol/L (3.5-5.1); Sodium 140 mmol/L (136-145); Total Bilirubin 0.6 mg/dL (0.15-1.2); Total Protein 6.8 g/dL (6.6-8.7)
== END 2023-11-03 23:59 | disposition home or self-care (01) ==
PROVIDERS: Nurse Practitioner Family; PCP Registered Nurse; Referring Provider Surgery; Visit Provider Nurse Practitioner Family
DX: Z79.899 Other long term (current) drug therapy; Z92.3 Personal history of irradiation; D69.6 Thrombocytopenia, unspecified; I10 Essential (primary) hypertension; Z92.21 Personal history of antineoplastic chemotherapy; Z90.49 Acquired absence of other specified parts of digestive tract; Z08 Encounter for follow-up examination after completed treatment for malignant neoplasm; Z85.038 Personal history of other malignant neoplasm of large intestine
CPT/HCPCS: 36415; 80053; 82378; 85025; 99214

== ENCOUNTER 2023-12-18 20:28 | Emergency (ER) | payer MEDICARE, SELFPAY ==
[2023-12-18 20:37] VITALS: BP 161/81; PULSE 64; RESP 20; TEMP 36.6; O2SAT 91; BMI 26.4
--- NOTE | 2023-12-18 20:38 | XRR_ITS ---
PROCEDURE INFORMATION: Exam: XR Chest Exam date and time: 12/18/2023 8:42 PM Age: 88 years old Clinical indication: Shortness of breath; Prior surgery; Surgery date: 6+ months; Surgery type: Gb; Patient HX: C/O SOB. Hospitalization for aspiration pneumonia three weeks ago. History of thymus and colon cancer. ; Additional info: Dyspnea TECHNIQUE: Imaging protocol: Radiologic exam of the chest. Views: 1 view. COMPARISON: CR XR chest 1V portable [id number] 12/21/2022 10:22 PM FINDINGS: Lungs: Postsurgical changes in the right hilum with opacity in the hilar station. Pleural spaces: Small right-sided pleural effusion. Heart/Mediastinum: Unremarkable. No cardiomegaly. Bones/joints: Unremarkable. XR/XR chest 1V portable [id number] IMPRESSION: 1. Small right-sided pleural effusion. 2. Postsurgical changes in the right hilum with opacity in the hilar station.
--- NOTE | 2023-12-18 20:40 | ED_ITS ---
HPI - SOB/Dyspnea 2 General: Chief Complaint: Shortness of Breath/Dyspnea Stated Complaint: SOB Time Seen by Provider: 12/18/23 20:38 History of Present Illness: HPI Narrative: Patient is to the ER by EMS with complaints of shortness of breath. Upon arrival of EMS to the patient's residence she was satting 96+ percent on room air but states she just felt like she could not take a big deep breath. They put her on 2 L of oxygen for comfort and brought her in. Patient does have a history of A-fib, aortic stenosis, metastatic adenocarcinoma of the rectosigmoid colon patient is lying in bed in no acute distress does not appear toxic. And is currently on room air with a saturation of approximately 90 to 96% %. Related Data Home Medications Medication Instructions Recorded Confirmed meclizine 25 mg tablet 25 mg PO DAILY 01/30/20 10/29/23 verapamil 180 mg tablet,extended 180 mg PO DAILY 01/28/21 10/29/23 release dimenhydrinate 50 mg tablet 50 mg PO Q8H PRN dizziness or 01/28/22 10/29/23 (Dramamine) vertigo famotidine 20 mg tablet 20 mg PO DAILY 01/28/22 10/29/23 apixaban 5 mg tablet (Eliquis) 5 mg PO BID 08/05/22 10/29/23 furosemide 20 mg tablet 20 mg PO DAILY 08/05/22 10/29/23 potassium chloride 10 mEq 10 meq PO DAILY 08/05/22 10/29/23 tablet,extended release Previous Rx's Medication Instructions Recorded metoprolol tartrate 50 mg tablet 50 mg PO BID #180 tabs 12/28/22 Allergies Allergy/AdvReac Type Severity Reaction Status Date / Time tramadol Allergy Unknown unknown Verified 10/29/23 10:24 Review of Systems 2 General: Reports: 10 or more systems reviewed and unremarkable except in HPI and below PFSH ED 2 PFSH: Medical History 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, 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 History of pulmonary embolism Leg swelling Benign essential HTN Paroxysmal atrial tachycardia Pulmonary embolism Cancer of thymus Trigeminal neuralgia Vaginal enterocele Cystocele Rectocele Hypertension H/O cardiac arrhythmia Surgical History H/O: hysterectomy Hx of cholecystectomy Family History Sister Cancer Brother Cancer Diabetes Lung disease Father Dementia Diabetes Mother Diabetes Denies family history of CAD (coronary artery disease) Clotting disorder Chronic kidney disease (CKD) Suicide Anesthesia complication Bleeding disorder Stroke Social History Smoking and tobacco/nicotine status: never used tobacco/nicotine Alcohol intake: never Substance/Drug Use: never Physical Exam 2 Const: COMMON NORMALS: no acute distress, average body habitus, patient oriented x3, no limitations, healthy appearing, alert and well nourished HENMT: COMMON NORMALS: normocephalic, atraumatic, hearing grossly normal bilaterally, external ears normal, Normal external nose present and moist oral mucous membranes HEAD & SCALP: normocephalic and atraumatic NOSE: Normal external nose present EXTERNAL EAR: Yes external ears normal Neck/C-Spine: COMMON NORMALS: full ROM, no lymphadenopathy, supple, no meningeal signs, no JVD and Thyroid normal THYROID: Thyroid normal Chest: COMMONS NORMALS: normal inspection of the chest and normal palpation of entire chest wall Resp: COMMON NORMALS: normal respiratory effort, No retractions, No use of accessory muscles and clear to auscultation bilaterally AUSCULTATION: clear to auscultation bilaterally Cardio: COMMON NORMALS: no JVD, regular rate, regular rhythm, S1 normal heart sound present, S2 normal heart sound present, No gallops present (Cardio) and No clicks present (Cardio); negative for No murmurs present (Cardio) (3/6 systolic ejection murmur) RATE: regular rate RHYTHM: regular rhythm HEART SOUNDS: S1 normal heart sound present and S2 normal heart sound present GI: COMMON NORMALS: Normal to inspection, nondistended, normoactive bowel sounds present, Soft to palpation, non-tender, No hepatosplenomegaly present and no masses PALPATION: Yes Soft to palpation and Yes No hepatosplenomegaly present Extremity: NARRATIVE EXTREMITY EXAM: 2+ pitting edema bilateral lower extremi ties Neuro: COMMON NORMALS: patient oriented x3 SENSORIUM/ORIENTATION: Yes alert MENINGEAL SIGNS: Yes no meningeal signs Course 2 Vital Signs: Vital signs: Vital Signs Temperature 97.8 F 12/18/23 20:37 Pulse Rate 58 L 12/18/23 22:07 Respiratory Rate 20 H 12/18/23 20:37 Blood Pressure 150/72 12/18/23 22:07 Pulse Oximetry 96 12/18/23 22:07 Oxygen Delivery Me thod Room Air 12/18/23 20:37 MDM - SOB/Dyspnea Medical Decision Making Patient had chest x-ray showed right-sided pleural effusion right-sided postsurgical changes, patient had lab work that included CBC CMP PT/INR that are all essentially negative, awaiting for her respiratory swab and second troponin. Dr. Ochoa was notified of this we will go ahead and discharge the patient on paper but we will hold her in ER until these results come back. Medical Records I reviewed the patient's medical records. Lab Data I reviewed the patient's lab results. 12/18/23 20:57 12/18/23 20:57 Labs/Radiology: Radiology Impressions Chest X-Ray 12/18/23 20:38 IMPRESSION: 1. Small right-sided pleural effusion. 2. Postsurgical changes in the right hilum with opacity in the hilar station. Laboratory Results WBC 4.93 10^3/uL (3.29-11.43) 12/18/23 20:57 RBC 4.44 10^6/uL (3.85-5.65) 12/18/23 20:57 Hgb 13.10 g/dL (11.27-16.99) 12/18/23 20:57 Hct 41.5 % (36-47) 12/18/23 20:57 MCV 93.5 fl (85-98) 12/18/23 20:57 MCH 29.5 pg (27-33) 12/18/23 20:57 MCHC 31.6 g/dL (30-55) 12/18/23 20:57 RDW 13.1 % (12.1-15.1) 12/18/23 20:57 Plt Count 142 10^3/cmm (157-399) L 12/18/23 20:57 MPV 11.0 fL (7.4-10.4) H 12/18/23 20:57 Neut % (Auto) 64.6 % 12/18/23 20:57 Lymph % (Auto) 24.9 % 12/18/23 20:57 [place] % (Auto) 7.9 % 12/18/23 20:57 Eos % (Auto) 1.8 % 12/18/23 20:57 Baso % (Auto) 0.6 % 12/18/23 20:57 Neut # (Auto) 3.18 10^3/uL (1.8-7.7) 12/18/23 20:57 Lymph # (Auto) 1.2 10^3/uL (0.8-4.8) 12/18/23 20:57 Morgan # (Auto) 0.4 10^3/uL (0.2-0.9) 12/18/23 20:57 Eos # (Auto) 0.1 10^3/uL (0.0-0.8) 12/18/23 20:57 Baso # (Auto) 0.0 10^3/uL (0.0-0.1) 12/18/23 20:57 Nucleated RBC % (auto) 0 % 12/18/23 20:57 Nucleated RBCs # 0.0 /100WBC 12/18/23 20:57 PT 17.90 SECONDS (12.1-14.9) H 12/18/23 20:57 INR 1.43 (0.8-1.2) H 12/18/23 20:57 Sodium 142 mmol/L (136-145) 12/18/23 20:57 Potassium 3.8 mmol/L (3.5-5.1) 12/18/23 20:57 Chloride 103 mmol/L (98-107) 12/18/23 20:57 Carbon Dioxide 29 mmol/L (22-29) 12/18/23 20:57 Anion Gap 13.8 (5-19) 12/18/23 20:57 BUN 20 mg/dL (8-23) 12/18/23 20:57 Creatinine 0.8 mg/dL (0.5-0.9) 12/18/23 20:57 GFR Calculation Not Reportable 12/18/23 20:57 Glucose 110 mg/dL (65-115) 12/18/23 20:57 Calculated Osmolality 297 mOsm/kg (285-295) H 12/18/23 20:57 Calcium 9.3 mg/dL (8.5-10.5) 12/18/23 20:57 Magnesium 2.1 mg/dL (1.7-2.3) 12/18/23 20:57 Total Bilirubin 0.5 mg/dL (0.15-1.2) 12/18/23 20:57 AST 21 U/L (0-32) 12/18/23 20:57 ALT 20 U/L (0-33) 12/18/23 20:57 Alkaline Phosphatase 82 U/L (35-105) 12/18/23 20:57 Troponin T Baseline 19 ng/L (0-10) H 12/18/23 20:57 Total Protein 6.4 g/dL (6.6-8.7) L 12/18/23 20:57 Albumin 4.2 g/dL (3.5-5.2) 12/18/23 20:57 Globulin 2.2 g/dL (1.3-4.6) 12/18/23 20:57 All radiology interpretation(s) finalized by discharge Discharge Plan Discharge Patient Disposition: Home Clinical Impression: Shortness of breath Condition: Stable Prescriptions: No Action meclizine 25 mg tablet 25 mg PO DAILY verapamil 180 mg tablet extended release 180 mg PO DAILY famotidine 20 mg tablet 20 mg PO DAILY dimenhydrinate [Dramamine] 50 mg tablet 50 mg PO Q8H PRN (Reason: dizziness or vertigo) Eliquis 5 mg tablet 5 mg PO BID furosemide 20 mg tablet 20 mg PO DAILY potassium chloride 10 mEq tablet extended release 10 meq PO DAILY metoprolol tartrate 50 mg tablet 50 mg PO BID Qty: 180 3RF Discharge Orders: Discharge ED (Routine); Ordered 12/18/23 Ordered By: Hakeem Valerio Referrals: Mariza Chambers [Primary Care Provider] - 1 week Patient Instructions: Shortness of Breath (ED) Activity Restrictions/Additional Instructions: Your evaluation in ER that included chest x-ray nasal swab and blood work did not reveal any acute cause of your shortness of breath. Your oxygen saturation was good on room air. Please follow-up with your family practice physician within the next 7 days for further evaluation and treatment as needed. Thank you for choosing [facility] for your healthcare needs today. Please realize that you were seen in the emergency department and that we are providing you with an emergency medical screening exam and this may not be a complete and all exclusive of all testing and/or medical workup we may need to determine your element or severity of your illness. It is very important that you follow-up as instructed with your primary care provider or specialist for the additional evaluation and to discuss your medical treatment plan. You may return to the emergency department should you have concerns or if your condition changes or worsens in any way. Coding Level of Care Code ED Assistant Hvac Mechanic for Angela Hernandez
--- NOTE | 2023-12-18 20:45 | ECG_ITS ---
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 Measurements Intervals [place] Rate: 60 P: 81 GA: 156 QRS: -29 QRSD: 122 T: -1 QT: 445 QTc: 448 Interpretive Statements SINUS RHYTHM POSSIBLE RIGHT VENTRICULAR CONDUCTION DELAY [RSR (QR) IN V1/V2] VOLTAGE CRITERIA FOR LVH [MEETS CRITERIA IN ONE OF: R(aVL), S(V1), R(V5), R(V5/V6)+S(V1)] POSSIBLE SEPTAL MYOCARDIAL INFARCTION , PROBABLY OLD [30 ms Q WAVE IN V1/V2] Compared to ECG 12/21/2022 22:01:39 Left-axis deviation no longer present Myocardial infarct finding still present Electronically Signed On 12-19-2023 9:15:16 CDT by Jered Ma M.D. [id number]
[2023-12-18 21:11] LABS: Basophils % 0.6 %; Eosinophils # 0.1 10^3/uL (0.0-0.8); Eosinophils % 1.8 %; Hematocrit 41.5 % (36-47); Lymphocytes # 1.2 10^3/uL (0.8-4.8); Lymphocytes % 24.9 %; Mean Corpuscular HGB Conc 31.6 g/dL (30-55); Mean Corpuscular Hemoglobin 29.5 pg (27-33); Mean Corpuscular Volume 93.5 fl (85-98); Monocytes # 0.4 10^3/uL (0.2-0.9); Monocytes % 7.9 %; Neutrophils # 3.18 10^3/uL (1.8-7.7); Neutrophils % 64.6 %; Nucleated Red Blood Cells % 0 %; Platelet Count 142 10^3/cmm (157-399); Red Blood Count 4.44 10^6/uL (3.85-5.65); Red Cell Distribution Width 13.1 % (12.1-15.1); White Blood Count 4.93 10^3/uL (3.29-11.43)
[2023-12-18 21:28] LABS: INR 1.43 (0.8-1.2)
[2023-12-18 21:36] LABS: Alanine Aminotransferase 20 U/L (0-33); Albumin Level 4.2 g/dL (3.5-5.2); Alkaline Phosphatase 82 U/L (35-105); Anion Gap 13.8 (5-19); Aspartate Amino Transferase 21 U/L (0-32); Blood Urea Nitrogen 20 mg/dL (8-23); Calcium 9.3 mg/dL (8.5-10.5); Carbon Dioxide 29 mmol/L (22-29); Chloride 103 mmol/L (98-107); Creatinine Clr Calc Pharmacy 40.7017; Globulin 2.2 g/dL (1.3-4.6); Glucose 110 mg/dL (65-115); Magnesium 2.1 mg/dL (1.7-2.3); Osmolality Calculated 297 mOsm/kg (285-295); Potassium 3.8 mmol/L (3.5-5.1); Sodium 142 mmol/L (136-145); Total Bilirubin 0.5 mg/dL (0.15-1.2); Total Protein 6.4 g/dL (6.6-8.7)
[2023-12-18 21:40] LABS: Troponin(5th) Baseline 19 ng/L (0-10)
[2023-12-18 22:07] VITALS: BP 150/72; PULSE 58; O2SAT 96
--- NOTE | 2023-12-18 22:41 | ECG_ITS ---
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 Measurements Intervals [place] Rate: 55 P: 45 OK: 148 QRS: -32 QRSD: 130 T: -2 QT: 465 QTc: 447 Interpretive Statements SINUS BRADYCARDIA LEFT AXIS DEVIATION [QRS AXIS < -30] POSSIBLE RIGHT VENTRICULAR CONDUCTION DELAY [RSR (QR) IN V1/V2] VOLTAGE CRITERIA FOR LVH [MEETS CRITERIA IN ONE OF: R(aVL), S(V1), R(V5), R(V5/V6)+S(V1)] Compared to ECG 12/18/2023 20:45:06 Left-axis deviation now present Sinus rhythm no longer present Myocardial infarct finding no longer present Electronically Signed On 12-19-2023 9:22:04 CDT by Jered Ma M.D. [id number]
[2023-12-18 23:03] LABS: Covid PCR NEGATIVE (Negative); Influenza A NEGATIVE (Negative); Influenza B NEGATIVE (Negative); Respiratory Syncytial Virus Ce NEGATIVE (Negative)
[2023-12-18 23:56] LABS: Troponin 5 2HR 16.78 ng/L (0-10)
[2023-12-19 00:01] LABS: Troponin 5 2HR Delta -2.22 ABS# (0-10)
[2023-12-19 00:02] VITALS: BP 149/65; PULSE 56; O2SAT 100
[2023-12-19 01:06] VITALS: BP 147/89; PULSE 57; RESP 16; O2SAT 99
== END 2023-12-19 01:03 | disposition home or self-care (01) ==
PROVIDERS: Emergency Provider Emergency Medicine; PCP Registered Nurse
DX: R06.02 Shortness of breath (principal); Z79.01 Long term (current) use of anticoagulants; Z85.038 Personal history of other malignant neoplasm of large intestine; I10 Essential (primary) hypertension
CPT/HCPCS: 0241U; 36415; 71045; 80053; 83735; 84484; 85025; 85610; 93005; 99285

== ENCOUNTER → 2023-12-31 09:57 | Outpatient (BNVA) | payer MEDICARE, SELFPAY | PROVIDERS: PCP Registered Nurse; Visit Provider Nurse Practitioner Family | DX: I48.91 Unspecified atrial fibrillation (principal) | CPT/HCPCS: 99213 ==

== ENCOUNTER → 2024-03-07 14:20 | Outpatient (BNVA) | payer MEDICARE, SELFPAY | PROVIDERS: PCP Registered Nurse; Visit Provider Internal Medicine Cardiovascular Disease | DX: R07.9 Chest pain, unspecified (principal); R06.02 Shortness of breath; R00.1 Bradycardia, unspecified; I26.99 Other pulmonary embolism without acute cor pulmonale; I10 Essential (primary) hypertension; I48.91 Unspecified atrial fibrillation; I35.0 Nonrheumatic aortic (valve) stenosis; I47.10 Supraventricular tachycardia, unspecified | CPT/HCPCS: 36415; 80048; 83880; 93005; 99215 ==

== ENCOUNTER 2024-08-07 11:56 | Oncology outpatient (recurring) (ONCR) | payer MEDICARE, SELFPAY ==
[2024-08-07 12:26] LABS: Basophils % 0.6 %; Eosinophils # 0.1 10^3/uL (0.0-0.8); Eosinophils % 1.4 %; Hematocrit 42.2 % (36-47); Lymphocytes # 1.3 10^3/uL (0.8-4.8); Lymphocytes % 25.5 %; Mean Corpuscular Hemoglobin 30.1 pg (27-33); Mean Platelet Volume 10.7 fL (7.4-10.4); Monocytes # 0.4 10^3/uL (0.2-0.9); Monocytes % 7.2 %; Neutrophils # 3.37 10^3/uL (1.8-7.7); Neutrophils % 65.1 %; Nucleated Red Blood Cells % 0 %; Platelet Count 146 10^3/cmm (157-399); Red Blood Count 4.49 10^6/uL (3.85-5.65); Red Cell Distribution Width 12.6 % (12.1-15.1); White Blood Count 5.17 10^3/uL (3.29-11.43)
[2024-08-07 12:41] LABS: INR 1.42 (0.8-1.2)
[2024-08-07 12:42] LABS: Partial Thromboplastin Time 40.3 SECONDS (23.9-36.7)
[2024-08-07 12:44] LABS: D Dimer 0.36 ug/mLFEU (0-0.59)
[2024-08-07 12:55] LABS: Alanine Aminotransferase 9 U/L (0-33); Alkaline Phosphatase 93 U/L (35-105); Aspartate Amino Transferase 16 U/L (0-32); Blood Urea Nitrogen 19 mg/dL (8-23); Calcium 9.2 mg/dL (8.5-10.5); Carbon Dioxide 31 mmol/L (22-29); Chloride 103 mmol/L (98-107); Creatinine Clr Calc Pharmacy 35.6939; Globulin 2.9 g/dL (1.3-4.6); Glucose 93 mg/dL (65-115); Osmolality Calculated 296 mOsm/kg (285-295); Sodium 142 mmol/L (136-145); Total Bilirubin 0.5 mg/dL (0.15-1.2); Total Protein 6.9 g/dL (6.6-8.7)
[2024-08-07 13:36] LABS: Carcinoembryonic Antigen 1.1 ng/mL (0.0-4.7)
== END 2024-09-02 23:59 | disposition home or self-care (01) ==
PROVIDERS: Internal Medicine Medical Oncology; Nurse Practitioner Family; PCP Registered Nurse; Referring Provider Surgery; Visit Provider Nurse Practitioner Family
DX: Z08 Encounter for follow-up examination after completed treatment for malignant neoplasm (principal); Z85.038 Personal history of other malignant neoplasm of large intestine; Z86.711 Personal history of pulmonary embolism; I26.99 Other pulmonary embolism without acute cor pulmonale; M79.89 Other specified soft tissue disorders; R03.0 Elevated blood-pressure reading, without diagnosis of hypertension; R63.4 Abnormal weight loss; D69.6 Thrombocytopenia, unspecified; I48.91 Unspecified atrial fibrillation; Z68.25 Body mass index [BMI] 25.0-25.9, adult; Z79.01 Long term (current) use of anticoagulants; Z92.21 Personal history of antineoplastic chemotherapy; Z92.3 Personal history of irradiation
CPT/HCPCS: 36415; 80053; 82378; 85025; 85378; 85610; 85730; 99214

== ENCOUNTER → 2024-09-01 09:23 | Outpatient (BNVA) | payer MEDICARE, SELFPAY | PROVIDERS: PCP Registered Nurse; Visit Provider Nurse Practitioner Family | DX: I35.0 Nonrheumatic aortic (valve) stenosis (principal); R00.1 Bradycardia, unspecified; I48.0 Paroxysmal atrial fibrillation; Z79.01 Long term (current) use of anticoagulants; I10 Essential (primary) hypertension; Z86.711 Personal history of pulmonary embolism | CPT/HCPCS: 99213 ==